=== PATIENT | female | born 1965 | race Caucasian/White ===

== ENCOUNTER 2017-04-21 15:54 | Emergency (ER) | payer OTHER ==
[2017-04-21 16:03] VITALS: BP 113/73; TEMP 98.3; BMI 27.4
[2017-04-21] MEDS ORDERED: KETOROLAC TROMETHAMINE 30 MG/1 ML VIAL IM ONE (16:29)
--- NOTE | 2017-04-21 16:31 | PDOC ---
History of Present Illness - General Chief Complaint: Pain, Acute Stated Complaint: PAIN Time Seen by Provider: 04/21/17 16:19 History Source: Patient Exam Limitations: No Limitations - History of Present Illness Initial Comments: 04/21/17 16:31 CHIEF COMPLAINT: Shoulder pain HISTORY OF PRESENT ILLNESS: This is an 51 year old female with a history of DJD (s/p right hip replacement) who presents for evaluation of two weeks of right shoulder pain. She denies injury to the area. Pain is unrelieved by Motrin and worsened with elevation/abduction of the right arm. She denies loss in sensation or any other symptoms. V/s on arrival are notable for P 105. REVIEW OF SYSTEMS: GENERAL/CONSTITUTIONAL: No fever or chills. No weakness. No weight change. CARDIOVASCULAR: No chest pain or palpitations. RESPIRATORY: No cough, wheezing, or shortness of breath. MUSCULOSKELETAL: See HPI. SKIN: No rash or easy bruising. NEUROLOGIC: No headache, vertigo, loss of consciousness, or loss of sensation. HEMATOLOGIC/LYMPHATIC: No anemia, easy bleeding, or history of blood clots. ALLERGIC/IMMUNOLOGIC: No hives or skin allergy. No latex allergy. PHYSICAL EXAM: GENERAL: The patient is awake, alert, and fully oriented, in no acute distress. ENT: Pupils equal, round and reactive to light, extraocular movements intact, sclera anicteric, conjunctiva clear. Neck supple. LUNGS: Clear to auscultation bilaterally. Normal excursion. No respiratory distress or use of accessory muscles. CV: RRR, S1/S2, no MRG. Cap refill < 2 sec. ABDOMEN: Soft, non-distended, non-tender. EXTREMITIES: Pain with passive elevation and abduction of right arm. Able to touch contralateral shoulder anteriorly but not posteriorly. Radial, ulnar, brachial pulses 2+. Sensation intact. NEUROLOGICAL: Normal speech, normal gait. CN II-XII grossly intact. PSYCH: Normal mood, normal affect. SKIN: Warm, dry, normal turgor, no rashes or lesions noted. Past History - Past Medical History Allergies/Adverse Reactions: Allergies Allergy/AdvReac Type Severity Reaction Status Date / Time No Known Allergies Allergy Unverified 04/21/17 16:01 Home Medications: Ambulatory Orders Buspirone HCl [Buspar -] 10 mg PO DAILY 04/21/17 Fluoxetine HCl [Prozac -] 10 mg PO DAILY 04/21/17 Psychiatric Problems: Yes (panic attacks, anxiety) - Surgical History Orthopedic Surgery: Yes (R hip replacement) - Immunization History Immunization Up to Date: Yes - Psycho/Social/Smoking Cessation Hx Anxiety: No Suicidal Ideation: No Smoking Status: No Smoking History: Never smoked Number of Cigarettes Smoked Daily: 0 Hx Alcohol Use: No Drug/Substance Use Hx: No Substance Use Type: None *Physical Exam - Vital Signs Last Vital Signs Temp Pulse Resp BP Pulse Ox 98.3 F 105 H 20 113/73 97 04/21/17 16:01 04/21/17 16:01 04/21/17 16:01 04/21/17 16:01 04/21/17 16:01 ED Treatment Course - RADIOLOGY Radiology Studies Ordered: Category Date Time Status SHOULDER-RIGHT [RAD] Stat Radiology 04/21/17 16:29 Ordered Medical Decision Making - Medical Decision Making 04/21/17 17:04 A/P: 51 year old female with non-traumatic right shoulder pain. 1. Toradol 30mg IM 2. Right shoulder x-ray 3. Orthopedic referral 04/21/17 18:15 Xray wet read: no acute process. Sling place. Orthopedic referral provided. Return precautions reviewed. *DC/Admit/Observation/Transfer Diagnosis at time of Disposition: Shoulder pain, right Qualifiers: Chronicity: acute Qualified Code(s): M25.511 - Pain in right shoulder - Discharge Dispostion Disposition: HOME Condition at time of disposition: Stable Admit: No - Referrals Referrals: Jose Rosales MD [Staff Physician] - Call tomorrow - Patient Instructions Printed Discharge Instructions: DI for Shoulder Pain Additional Instructions: -Rest and use the sling provided -Take Naproxen as prescribed for pain and inflammation -PRELIMINARY read of your xray is negative; you will receive a call if anything else is reported by the radiologist -Follow up with orthopedics (referral enclosed) -Return here for numbness or weakness of your arm or for any other concerning symptoms
[2017-04-21] MEDS ORDERED: KETOROLAC TROMETHAMINE 30 MG/1 ML VIAL ONE (16:33)
[2017-04-21 18:24] VITALS: PULSE 70
== END 2017-04-21 18:24 | disposition home or self-care (01) ==
LOC: JERFT 15:54
PROC: 3E0233Z Introduction of Anti-inflammatory into Muscle, Percutaneous Approach (ICD-10-PCS; principal; 2017-04-21)
DX: M25.511 Pain in right shoulder (principal); Z96.641 Presence of right artificial hip joint
CPT/HCPCS: 73030-TC-RT; 96372; 99281-25

== ENCOUNTER 2017-08-08 16:35 | Inpatient (IN) | payer OTHER ==
--- NOTE | 2017-08-08 16:54 | PDOC ---
Rapid Medical Evaluation Time Seen by Provider: 08/08/17 16:50 Medical Evaluation: Allergies Allergy/AdvReac Type Severity Reaction Status Date / Time No Known Allergies Allergy Unverified 04/21/17 16:01 08/08/17 16:50 I have performed a brief in-person evaluation of this patient. The patient presents with a chief complaint of: mid abdominal pain Pertinent physical exam findings: ABD: SNTND. Normoactive bowel sounds. I have ordered the following: CBC, CMP, lipase, ua, urine cx The patient will proceed to the ED for further evaluation. Discharge Disposition - Diagnosis Abdominal pain - Referrals - Patient Instructions - Post Discharge Activity
[2017-08-08] MEDS ORDERED: MAG HYDROX/AL HYDROX/SIMETH 30 ML UNIT-DOSE CUP PO ONE (19:19)
[2017-08-08] MEDS ORDERED: MAG HYDROX/AL HYDROX/SIMETH 30 ML UNIT-DOSE CUP ONE (19:24)
[2017-08-08] MEDS: SODIUM CHLORIDE 1,000 ML IV SCH (19:37)
[2017-08-08 19:47] LABS: BASO % 0.2 % (0-2.0); EOS % 0.4 % (0-4.5); HEMATOCRIT 39.9 % (32.4-45.2); HEMOGLOBIN 13.3 GM/dL (10.7-15.3); LYMPH % 14.4 % (8-40); MCH 32.2 pg (25.7-33.7); MCHC 33.4 g/dl (32.0-36.0); MEAN CELL VOLUME 96.6 fl (80-96); MEAN PLT VOLUME 8.6 fl (7.5-11.1); PLATELET COUNT 297 K/MM3 (134-434); RBC 4.14 M/mm3 (3.60-5.2); RDW 13.5 % (11.6-15.6); WHITE BLOOD COUNT 10.2 K/mm3 (4.0-10.0)
[2017-08-08 20:09] LABS: HCG,QUALITATIVE URINE NEGATIVE
[2017-08-08 20:12] LABS: URINE APPEARANCE CLOUDY; URINE BILIRUBIN NEGATIVE (NEGATIVE); URINE BLOOD 2+ (NEGATIVE); URINE COLOR YELLOW; URINE GLUCOSE (UA) NEGATIVE (NEGATIVE); URINE KETONE NEGATIVE (NEGATIVE); URINE LEUK ESTERASE NEGATIVE (NEGATIVE); URINE NITRITE NEGATIVE (NEGATIVE); URINE PROTEIN NEGATIVE (NEGATIVE)
[2017-08-08 20:17] LABS: ALBUMIN 3.4 g/dl (3.4-5.0); ALK PHOS 163 U/L (45-117); ANION GAP 8 (8-16); BILIRUBIN,TOTAL 0.6 mg/dL (0.2-1.0); BLOOD UREA NITROGEN 15 mg/dL (7-18); CALCIUM 9.2 mg/dL (8.5-10.1); CHLORIDE 106 mmol/L (98-107); CO2 26 mmol/L (21-32); CREATININE 0.8 mg/dL (0.55-1.02); GLUCOSE,RANDOM 95 mg/dL (74-106); LIPASE 126 U/L (73-393); POTASSIUM 4.2 mmol/L (3.5-5.1); SGOT/AST 222 U/L (15-37); SGPT/ALT 171 U/L (12-78); SODIUM 140 mmol/L (136-145); TOT PROT 7.7 g/dl (6.4-8.2)
--- NOTE | 2017-08-08 20:26 | PDOC ---
History of Present Illness - General History Source: Patient Exam Limitations: No Limitations - History of Present Illness Initial Comments: 08/08/17 20:40 The patient is a 51-year-old female, with a significant past medical history of anxiety and DJD (s/p right hip replacement), who presents to the ED with intermittent epigastric pain and nausea that began today at 2 PM. Pt was cleaning at home when the pain came on. She reports having crackers and chocolate for breakfast and has not been able to eat since due to the pain. Pt usually eats once a day and does not have much of an appetite. On exam, pt is not experiencing any pain. She denies any fever, chills, vomiting, or diarrhea. Denies any shortness of breath or chest pain. Family Hx: Gallstones (Mother) <Susanna Romo - Last Filed: 08/08/17 22:28> <Henrietta Contreras - Last Filed: 08/09/17 19:42> - General Chief Complaint: Pain, Acute Stated Complaint: STOMACH PAIN Time Seen by Provider: 08/08/17 16:50 Past History <Susanna Romo - Last Filed: 08/08/17 22:28> - Past Medical History Psychiatric Problems: Yes (panic attacks, anxiety) - Surgical History Orthopedic Surgery: Yes (R hip replacement) - Immunization History Immunization Up to Date: Yes - Suicide/Smoking/Psychosocial Hx Smoking Status: No Smoking History: Never smoked Number of Cigarettes Smoked Daily: 0 Information on smoking cessation initiated: No Hx Alcohol Use: No Drug/Substance Use Hx: No Substance Use Type: None <Henrietta Contreras - Last Filed: 08/09/17 19:42> - Past Medical History Allergies/Adverse Reactions: Allergies Allergy/AdvReac Type Severity Reaction Status Date / Time No Known Allergies Allergy Verified 08/08/17 16:56 Home Medications: Ambulatory Orders Buspirone HCl [Buspar -] 10 mg PO DAILY 04/21/17 Fluoxetine HCl [Prozac -] 10 mg PO DAILY 04/21/17 Review of Systems - Review of Systems Able to Perform ROS?: Yes Comments:: 08/08/17 20:41 CONSTITUTIONAL: Present: loss of appetite Absent: fever, chills, diaphoresis, generalized weakness, malaise HEENT: Absent: rhinorrhea, nasal congestion, throat pain, throat swelling, difficulty swallowing, mouth swelling, ear pain, eye pain, visual Changes CARDIOVASCULAR: Absent: chest pain, syncope, palpitations, irregular heart rate, lightheadedness , peripheral edema RESPIRATORY: Absent: cough, shortness of breath, dyspnea with exertion, orthopnea, wheezing, stridor, hemoptysis GASTROINTESTINAL: Present: abdominal pain, nausea Absent: abdominal distension, vomiting, diarrhea, constipation, melena, hematochezia GENITOURINARY: Absent: dysuria, frequency, urgency, hesitancy, hematuria, flank pain, genital pain MUSCULOSKELETAL: Absent: myalgia, arthralgia, joint swelling SKIN: Absent: rash, itching, pallor HEMATOLOGIC/IMMUNOLOGIC: Absent: easy bleeding, easy bruising, lymphadenopathy, frequent infections ENDOCRINE: Absent: unexplained weight gain, unexplained weight loss, heat intolerance, cold intolerance NEUROLOGIC: Absent: headache, focal weakness or paresthesias, dizziness, unsteady gait, seizure, mental status changes, bladder or bowel incontinence PSYCHIATRIC: Absent: anxiety, depression, suicidal or homicidal ideation, hallucinations. <Susanna Romo - Last Filed: 08/08/17 22:28> *Physical Exam - Vital Signs Last Vital Signs Temp Pulse Resp BP Pulse Ox 98.5 F 77 18 140/76 100 08/08/17 17:00 08/08/17 17:00 08/08/17 17:00 08/08/17 17:00 08/08/17 17:00 - Physical Exam Comments: 08/08/17 20:42 GENERAL: Well developed, well nourished. Awake and alert. No acute distress. HEENT: Normocephalic, atraumatic. PERRLA, EOMI. No conjunctival pallor. Sclera are non- icteric. Moist mucous membranes. Oropharynx is clear. NECK: Supple. Full ROM. No JVD. Carotid pulses 2+ and symmetric, without bruits. No thyromegaly. No lymphadenopathy. CARDIOVASCULAR: Regular rate and rhythm. No murmurs, rubs, or gallops. Distal pulses are 2+ and symmetric. PULMONARY: No evidence of respiratory distress. Lungs clear to auscultation bilaterally. No wheezing, rales or rhonchi. ABDOMINAL: Soft. Non-tender. Non-distended. No rebound or guarding. No organomegaly. Normoactive bowel sounds. MUSCULOSKELETAL Normal range of motion at all joints. No bony deformities or tenderness. No CVA tenderness. EXTREMITIES: No cyanosis. No clubbing. No edema. No calf tenderness. SKIN: Warm and dry. Normal capillary refill. No rashes. No jaundice. NEUROLOGICAL: Alert, awake, appropriate. <Susanna Romo - Last Filed: 08/08/17 22:28> - Vital Signs Last Vital Signs Temp Pulse Resp BP Pulse Ox 98.5 F 77 18 140/76 100 08/08/17 17:00 08/08/17 17:00 08/08/17 17:00 08/08/17 17:00 08/08/17 17:00 <Henrietta Contreras - Last Filed: 08/09/17 19:42> ED Treatment Course - LABORATORY CBC & Chemistry Diagram: 08/08/17 18:30 08/08/17 18:30 - ADDITIONAL ORDERS Additional order review: Laboratory Results 08/08/17 08/08/17 19:50 18:30 Sodium 140 Potassium 4.2 Chloride 106 Carbon Dioxide 26 Anion Gap 8 BUN 15 Creatinine 0.8 Creat Clearance w eGFR > 60 Random Glucose 95 Calcium 9.2 Total Bilirubin 0.6 AST 222 H ALT 171 H Alkaline Phosphatase 163 H Total Protein 7.7 Albumin 3.4 Lipase 126 Urine HCG, Qual Negative 08/08/17 18:30 RBC 4.14 MCV 96.6 H MCHC 33.4 RDW 13.5 MPV 8.6 Neutrophils % 79.0 Lymphocytes % 14.4 Monocytes % 6.0 Eosinophils % 0.4 Basophils % 0.2 - Medications Given in the ED: ED Medications Discontinued Medications Generic Name Dose Route Start Last Admin Trade Name Panq PRN Reason Stop Dose Admin Al Hydroxide/Mg Hydroxide 30 ml 08/08/17 19:19 08/08/17 19:32 Mylanta Oral Suspension - PO 08/08/17 19:20 30 ml ONCE ONE Administration <Susanna Romo - Last Filed: 08/08/17 22:28> - LABORATORY CBC & Chemistry Diagram: 08/09/17 07:50 08/09/17 07:50 - ADDITIONAL ORDERS Additional order review: Laboratory Results 08/08/17 08/08/17 19:50 18:30 Sodium 140 Potassium 4.2 Chloride 106 Carbon Dioxide 26 Anion Gap 8 BUN 15 Creatinine 0.8 Creat Clearance w eGFR > 60 Random Glucose 95 Calcium 9.2 Total Bilirubin 0.6 AST 222 H ALT 171 H Alkaline Phosphatase 163 H Total Protein 7.7 Albumin 3.4 Lipase 126 Urine HCG, Qual Negative 08/08/17 18:30 RBC 4.14 MCV 96.6 H MCHC 33.4 RDW 13.5 MPV 8.6 Neutrophils % 79.0 Lymphocytes % 14.4 Monocytes % 6.0 Eosinophils % 0.4 Basophils % 0.2 - RADIOLOGY Radiology Studies Ordered: Category Date Time Status ABDOMEN FLAT & UPRIGHT [RAD] Stat Radiology 08/08/17 19:18 Ordered - Medications Given in the ED: ED Medications Discontinued Medications Generic Name Dose Route Start Last Admin Trade Name Freq PRN Reason Stop Dose Admin Al Hydroxide/Mg Hydroxide 30 ml 08/08/17 19:19 08/08/17 19:32 Mylanta Oral Suspension - PO 08/08/17 19:20 30 ml ONCE ONE Administration <Henrietta Contreras - Last Filed: 08/09/17 19:42> Medical Decision Making - Medical Decision Making 08/09/17 19:41 Pt will be admitted for cholecystitis. <Henrietta Contreras - Last Filed: 08/09/17 19:42> *DC/Admit/Observation/Transfer - Attestations Scribe Attestion: 08/08/17 20:43 Documentation prepared by Susanna Romo, acting as emergency medicine medical director for Henrietta Contreras MD. <Susanna Romo - Last Filed: 08/08/17 22:28> - Discharge Dispostion Admit: Yes <Henrietta Contreras - Last Filed: 08/09/17 19:42> Diagnosis at time of Disposition: Abdominal pain, Gastritis, Gas pain - Discharge Dispostion Condition at time of disposition: Guarded
[2017-08-08 21:15] LABS: EPI CELLS MODERATE /HPF (FEW); URINE BACTERIA MODERATE /hpf (NONE SEEN); URINE MUCUS RARE
[2017-08-09] MEDS ORDERED: IBUPROFEN 800 MG/8 ML IJ IVPB PRN (01:40)
--- NOTE | 2017-08-09 01:50 | PN ---
Teaching Attending Note Name of Resident: Mario Soto ATTENDING PHYSICIAN STATEMENT I saw and evaluated the patient. I reviewed the resident's note and discussed the case with the resident. I agree with the resident's findings and plan as documented. SUBJECTIVE: OBJECTIVE: AAOX3 s1 and S2 RRR no abdominal pain noted. negative lugo's sign on exam ASSESSMENT AND PLAN: 51 y/o female with hx of anxiety presented to the ER with RUQ pain, associated with nausea and vomiting patient is being admitted for choledolithiasis diet as tolerated c/w IVF surgical evaluation pain management
--- NOTE | 2017-08-09 01:50 | HP ---
CHIEF COMPLAINT: abdominal pain PCP: HISTORY OF PRESENT ILLNESS: 51F w/ PMH of anxiety and panic attacks who presents with diffuse abdominal pain since this afternoon. She states that it started spontaneously, has been constant, 10/10 in severity, and radiates to back. She has not taken any medications for it. It was accompanied by mild nausea, decreased appetite, and chills. Pt denies fevers, chest pain, SOB, emesis, diarrhea, constipation, and dysuria. She denies ever having any similar pain like this before, and she denies eating any fatty food before the pain began. ER course was notable for: (1) US findings (2) (3) Recent Travel: denies PAST MEDICAL HISTORY: panic attacks anxiety PAST SURGICAL HISTORY: denies Social History: Smoking: denies Alcohol: denies Drugs: denies Family History: cholecystitis in mother Allergies No Known Allergies Allergy (Verified 08/08/17 16:56) HOME MEDICATIONS: Home Medications Medication Instructions Recorded Buspirone HCl [Buspar -] 10 mg PO DAILY 04/21/17 Fluoxetine HCl [Prozac -] 10 mg PO DAILY 04/21/17 REVIEW OF SYSTEMS CONSTITUTIONAL: Absent: fever, diaphoresis, generalized weakness, malaise, weight change present: chills, loss of appetite HEENT: Absent: rhinorrhea, nasal congestion, throat pain, throat swelling, difficulty swallowing, mouth swelling, ear pain, eye pain, visual changes CARDIOVASCULAR: Absent: chest pain, syncope, palpitations, irregular heart rate, lightheadedness , peripheral edema RESPIRATORY: Absent: cough, shortness of breath, dyspnea with exertion, orthopnea, wheezing, stridor, hemoptysis GASTROINTESTINAL: Absent: abdominal distension, vomiting, diarrhea, constipation, melena, hematochezia present: abdominal pain, nausea GENITOURINARY: Absent: dysuria, frequency, urgency, hesitancy, hematuria, flank pain, genital pain MUSCULOSKELETAL: Absent: myalgia, arthralgia, joint swelling, back pain, neck pain SKIN: Absent: rash, itching, pallor HEMATOLOGIC/IMMUNOLOGIC: Absent: easy bleeding, easy bruising, lymphadenopathy, frequent infections ENDOCRINE: Absent: unexplained weight gain, unexplained weight loss, heat intolerance, cold intolerance NEUROLOGIC: Absent: headache, focal weakness or paresthesias, dizziness, unsteady gait, seizure, mental status changes, bladder or bowel incontinence PSYCHIATRIC: Absent: depression, suicidal or homicidal ideation, hallucinations. present: anxiety PHYSICAL EXAMINATION Vital Signs - 24 hr 08/08/17 08/08/17 17:00 22:20 Temperature 98.5 F Pulse Rate 77 Pulse Rate [ 60 Apical] Respiratory 18 14 Rate Blood Pressure 140/76 Blood Pressure 131/82 [Right Arm] O2 Sat by Pulse 100 99 Oximetry (%) GENERAL: Awake, alert, and fully oriented, in no acute distress. HEAD: Normal with no signs of trauma. EYES: Pupils equal, round and reactive to light, extraocular movements intact, sclera anicteric, conjunctiva clear. No lid lag. EARS, NOSE, THROAT: Ears normal, nares patent, oropharynx clear without exudates. Moist mucous membranes. NECK: Normal range of motion, supple without lymphadenopathy, JVD, or masses. LUNGS: Breath sounds equal, clear to auscultation bilaterally. No wheezes, and no crackles. No accessory muscle use. HEART: Regular rate and rhythm, normal S1 and S2 without murmur, rub or gallop. ABDOMEN: Soft, nontender, not distended, normoactive bowel sounds, no guarding, no rebound, no masses. No hepatomegaly or splenomegaly. MUSCULOSKELETAL: Normal range of motion at all joints. No bony deformities or tenderness. No CVA tenderness. UPPER EXTREMITIES: 2+ pulses, warm, well-perfused. No cyanosis. No clubbing. No peripheral edema. LOWER EXTREMITIES: 2+ pulses, warm, well-perfused. No calf tenderness. No peripheral edema. NEUROLOGICAL: Cranial nerves II-XII intact. Normal speech. Normal gait. PSYCHIATRIC: Cooperative. Good eye contact. Appropriate mood and affect. SKIN: Warm, dry, normal turgor, no rashes or lesions noted, normal capillary refill. Laboratory Results - last 24 hr 08/08/17 08/08/17 08/08/17 18:30 18:30 19:50 WBC 10.2 H RBC 4.14 Hgb 13.3 Hct 39.9 MCV 96.6 H MCH 32.2 MCHC 33.4 RDW 13.5 Plt Count 297 MPV 8.6 Neutrophils % 79.0 Lymphocytes % 14.4 Monocytes % 6.0 Eosinophils % 0.4 Basophils % 0.2 Sodium 140 Potassium 4.2 Chloride 106 Carbon Dioxide 26 Anion Gap 8 BUN 15 Creatinine 0.8 Creat Clearance w eGFR > 60 Random Glucose 95 Calcium 9.2 Total Bilirubin 0.6 AST 222 H ALT 171 H Alkaline Phosphatase 163 H Total Protein 7.7 Albumin 3.4 Lipase 126 Urine Color Yellow Urine Appearance Cloudy Urine pH 6.0 Ur Specific [place] 1.021 Urine Protein Negative Urine Glucose (UA) Negative Urine Ketones Negative Urine Blood 2+ H Urine Nitrite Negative Urine Bilirubin Negative Urine Urobilinogen 2.0 H Ur Leukocyte Esterase Negative Urine WBC (Auto) 7 Urine RBC (Auto) 5 Ur Epithelial Cells Moderate Urine Bacteria Moderate Urine Mucus Rare Urine HCG, Qual Negative US abdomen: cholelithiasis with mild gallbladder wall thickening and pericholecystic fluid ASSESSMENT/PLAN: 51F w/ PMH of anxiety and panic attacks who presents with acute diffuse abdominal pain, found to have abnormal LFTs and US findings consistent with cholecystitis. #cholecystitis -transaminitis and elevated ALP -US shows findings consistent with cholecystitis -levaquin and flagyl -NS @ 125 -NPO for now -surgery consult, Dr. Giordano, f/u recs -pain control with IV motrin #anxiety -continue home buspar and prozac #FEN/ppx -NS @ 125 -electrolytes wnl -NPO for now -no GI ppx -SCDs -Mario Soto MD PGY1 Visit type - Emergency Visit Emergency Visit: Yes ED Registration Date: 08/09/17 Care time: The patient presented to the Emergency Department on the above date and was hospitalized for further evaluation of their emergent condition. - New Patient This patient is new to me today: Yes Date on this admission: 08/09/17 - Critical Care Critical Care patient: No
[2017-08-09] MEDS: SODIUM CHLORIDE 1,000 ML IV SCH ×3 (02:22→18:16)
[2017-08-09] MEDS: LEVOFLOXACIN 750 MG IVPB 750 MG/150 ML BAG IVPB SCH ×2 (02:41→21:32)
[2017-08-09] MEDS: METRONIDAZOLE 500 MG PREMIXED 500 MG/100 ML MG IVPB SCH ×4 (03:29→21:31)
[2017-08-09 05:42] VITALS: BMI 29.0
[2017-08-09 08:30] LABS: BASO % 0.2 % (0-2.0); EOS % 0.5 % (0-4.5); HEMATOCRIT 37.7 % (32.4-45.2); HEMOGLOBIN 12.4 GM/dL (10.7-15.3); LYMPH % 10.6 % (8-40); MCH 31.4 pg (25.7-33.7); MCHC 32.7 g/dl (32.0-36.0); MEAN PLT VOLUME 8.3 fl (7.5-11.1); MONO % 6.4 % (3.8-10.2); NEUT % 82.3 % (42.8-82.8); PLATELET COUNT 259 K/MM3 (134-434); RBC 3.93 M/mm3 (3.60-5.2); RDW 13.5 % (11.6-15.6); WHITE BLOOD COUNT 8.1 K/mm3 (4.0-10.0)
[2017-08-09 08:53] LABS: ALBUMIN 2.9 g/dl (3.4-5.0); ANION GAP 7 (8-16); BLOOD UREA NITROGEN 8 mg/dL (7-18); CALCIUM 8.6 mg/dL (8.5-10.1); CHLORIDE 109 mmol/L (98-107); CO2 24 mmol/L (21-32); GLUCOSE,RANDOM 97 mg/dL (74-106); POTASSIUM 4.4 mmol/L (3.5-5.1); SGPT/ALT 327 U/L (12-78); SODIUM 140 mmol/L (136-145)
[2017-08-09 08:55] LABS: ALK PHOS 167 U/L (45-117); CREATININE 0.7 mg/dL (0.55-1.02); SGOT/AST 265 U/L (15-37); TOT PROT 6.7 g/dl (6.4-8.2)
[2017-08-09] MEDS: FLUoxetine HCL 10 MG CAPSULE (FP) PO SCH ×2 (09:15→09:17)
[2017-08-09] MEDS: busPIRone HCL 10 MG TABLET (FP) PO SCH ×2 (09:15→09:18)
[2017-08-09 09:20] LABS: INR 1.16 (0.82-1.09); PROTHROMBIN TIME (PATIENT) 13.1 SEC (9.98-11.88)
[2017-08-09 09:21] LABS: ACTIVATED PTT 31.3 SECONDS (26.9-34.4)
--- NOTE | 2017-08-09 12:07 | CONSULT ---
- Consultation REQUESTING PROVIDER: Mariella MAHONEY CONSULT REQUEST: We have been asked to surgically evaluate this patient for abdominal pain PCP:Fam Nur HISTORY OF PRESENT ILLNESS:CTSP who is a 51 y/o female who presented w/ nausea and vomiting and abdominal pain; w/u reveals cholelithiasis possible choledocholithiasis; she feels better since admission; pain started after eating ; she denies dark urine/light stools; NOC PMHx: anxiety/depression PSHx: hip surgery Home Medications Medication Instructions Recorded Buspirone HCl [Buspar -] 10 mg PO DAILY 04/21/17 Fluoxetine HCl [Prozac -] 10 mg PO DAILY 04/21/17 Allergies Allergy/AdvReac Type Severity Reaction Status Date / Time No Known Allergies Allergy Verified 08/08/17 16:56 PHYSICAL EXAM: GENERAL: Awake, alert, and fully oriented, in no acute distress. HEAD: Normal with no signs of trauma. EYES: sclera anicteric, conjunctiva clear. NECK: Normal ROM, supple without lymphadenopathy, JVD, or masses. ABDOMEN: Soft, nontender, not distended, normoactive bowel sounds, no guarding, no rebound, no masses. No organomegaly. MUSCULOSKELETAL: Normal ROM at all joints. No bony deformities or tenderness. No CVA tenderness. UPPER EXTREMITIES: 2+ pulses, warm, well-perfused. No cyanosis. Cap refill <2 seconds. No peripheral edema. LOWER EXTREMITIES: 2+ pulses, warm, well-perfused. No calf tenderness. No peripheral edema. NEUROLOGICAL: Normal speech, gait not observed. PSYCH: Cooperative. Good eye contact. Appropriate mood and affect. SKIN: Warm, dry, normal turgor, no rashes or lesions noted. Vital Signs Temperature 98.8 F 08/09/17 10:00 Pulse Rate 77 08/09/17 10:00 Respiratory Rate 18 08/09/17 10:00 Blood Pressure 106/76 08/09/17 10:00 O2 Sat by Pulse Oximetry (%) 99 08/09/17 00:33 Lab Results WBC 8.1 K/mm3 (4.0-10.0) 08/09/17 07:50 RBC 3.93 M/mm3 (3.60-5.2) 08/09/17 07:50 Hgb 12.4 GM/dL (10.7-15.3) 08/09/17 07:50 Hct 37.7 % (32.4-45.2) 08/09/17 07:50 MCV 96.0 fl (80-96) 08/09/17 07:50 MCHC 32.7 g/dl (32.0-36.0) 08/09/17 07:50 RDW 13.5 % (11.6-15.6) 08/09/17 07:50 Plt Count 259 K/MM3 (134-434) 08/09/17 07:50 Sodium 140 mmol/L (136-145) 08/09/17 07:50 Potassium 4.4 mmol/L (3.5-5.1) 08/09/17 07:50 Chloride 109 mmol/L (98-107) H 08/09/17 07:50 Carbon Dioxide 24 mmol/L (21-32) 08/09/17 07:50 Anion Gap 7 (8-16) L 08/09/17 07:50 BUN 8 mg/dL (7-18) D 08/09/17 07:50 Creatinine 0.7 mg/dL (0.55-1.02) 08/09/17 07:50 Random Glucose 97 mg/dL (74-106) 08/09/17 07:50 Calcium 8.6 mg/dL (8.5-10.1) 08/09/17 07:50 Blood Type O POSITIVE 08/09/17 07:50 Antibody Screen Negative 08/09/17 07:50 INR 1.16 (0.82-1.09) H 08/09/17 07:50 Imaging w/u to date reviewed IMP: cholelithiasis; r/o choledocholithiasis PLAN: Suggest NPO/IVF?trend LFT's and bili; MRCP; will f/u; will eventually need lap juliet. Samir Giordano MD FACS Visit type - Case Type Case Type: ED Admission - Emergency Emergency Visit: Yes ED Registration Date: 08/09/17 Care time: The patient presented to the Emergency Department on the above date and was hospitalized for further evaluation of their emergent condition. - New patient This patient is new to me today: Yes Date on this admission: 08/09/17 - Critical Care Critical Care patient: No
--- NOTE | 2017-08-09 14:44 | PN ---
Progress Note (short form) - Note Progress Note: GI CONSULTATION: " FOR DR ELIZABETH GREGORIO" SEE COMPLETE CONSULT DICTATION IN BRIEF: 51F WITHOUT PRIOR GI HX ACUTE ONSET OF DIFFUSE UMBILICAL AND EPIGASTRIC PAIN, NOW RESOLVED NOTED LFT ELEVATION, SONO C/W A.C., BUT NO DUUCTAL DILATION UNCLEAR IF LFT ELEVATION DUE TO CBD STONE/ INFLAMED GB ON LIVER BED/ OR OCCULT LIVER DIUSEASE RECC: NPO/CLEAR PO GILBERT. IVF IV ABX/ PAIN MEDS IF NEEDED MRCP TO R/O CBD STONES NEXT DX TEST F/U LFT'S CHOLECYSTECTOMY THANKS, MD JOSÉ MANUEL
--- NOTE | 2017-08-09 16:17 | PN ---
Physical Exam: SUBJECTIVE: Patient seen and examined Patient feels better with no acute distress. has mild pain 2/10. OBJECTIVE: Vital Signs Temperature 98.2 F 08/09/17 18:51 Pulse Rate 89 08/09/17 18:51 Respiratory Rate 18 08/09/17 18:51 Blood Pressure 143/90 08/09/17 18:51 O2 Sat by Pulse Oximetry (%) 98 08/09/17 09:00 GENERAL: The patient is awake, alert, and fully oriented, in no acute distress. HEAD: Normal with no signs of trauma. EYES: PERRL, extraocular movements intact, sclera anicteric, conjunctiva clear. ENT: Ears normal, oropharynx clear without exudates, moist mucous membranes. NECK: Trachea midline, full range of motion, supple. LUNGS: Breath sounds equal, clear to auscultation bilaterally, no wheezes, no crackles, no accessory muscle use. HEART: Regular rate and rhythm, S1, S2 without murmur, rub or gallop. ABDOMEN: Soft, mild tenderness RUQ/midepigastric area. nondistended, normoactive bowel sounds, no guarding, no rebound. EXTREMITIES: 2+ pulses, warm, well-perfused, no edema. NEUROLOGICAL: Cranial nerves II through XII grossly intact. Normal speech, gait not observed. PSYCH: Normal mood, normal affect. SKIN: Warm, dry, normal turgor, no rashes or lesions noted Laboratory Results - last 24 hr 08/08/17 08/08/17 08/08/17 18:30 18:30 19:50 WBC 10.2 H RBC 4.14 Hgb 13.3 Hct 39.9 MCV 96.6 H MCH 32.2 MCHC 33.4 RDW 13.5 Plt Count 297 MPV 8.6 Neutrophils % 79.0 Lymphocytes % 14.4 Monocytes % 6.0 Eosinophils % 0.4 Basophils % 0.2 PT with INR INR PTT (Actin FS) Sodium 140 Potassium 4.2 Chloride 106 Carbon Dioxide 26 Anion Gap 8 BUN 15 Creatinine 0.8 Creat Clearance w eGFR > 60 Random Glucose 95 Calcium 9.2 Total Bilirubin 0.6 AST 222 H ALT 171 H Alkaline Phosphatase 163 H Total Protein 7.7 Albumin 3.4 Lipase 126 Urine Color Yellow Urine Appearance Cloudy Urine pH 6.0 Ur Specific [place] 1.021 Urine Protein Negative Urine Glucose (UA) Negative Urine Ketones Negative Urine Blood 2+ H Urine Nitrite Negative Urine Bilirubin Negative Urine Urobilinogen 2.0 H Ur Leukocyte Esterase Negative Urine WBC (Auto) 7 Urine RBC (Auto) 5 Ur Epithelial Cells Moderate Urine Bacteria Moderate Urine Mucus Rare Urine HCG, Qual Negative Blood Type Antibody Screen 08/09/17 08/09/17 08/09/17 07:50 07:50 07:50 WBC 8.1 RBC 3.93 Hgb 12.4 Hct 37.7 MCV 96.0 MCH 31.4 MCHC 32.7 RDW 13.5 Plt Count 259 MPV 8.3 Neutrophils % 82.3 Lymphocytes % 10.6 D Monocytes % 6.4 Eosinophils % 0.5 Basophils % 0.2 PT with INR 13.10 H INR 1.16 H PTT (Actin FS) 31.3 Sodium 140 Potassium 4.4 Chloride 109 H Carbon Dioxide 24 Anion Gap 7 L BUN 8 D Creatinine 0.7 Creat Clearance w eGFR > 60 Random Glucose 97 Calcium 8.6 Total Bilirubin 1.0 D AST 265 H ALT 327 H D Alkaline Phosphatase 167 H Total Protein 6.7 Albumin 2.9 L Lipase Urine Color Urine Appearance Urine pH Ur Specific [place] Urine Protein Urine Glucose (UA) Urine Ketones Urine Blood Urine Nitrite Urine Bilirubin Urine Urobilinogen Ur Leukocyte Esterase Urine WBC (Auto) Urine RBC (Auto) Ur Epithelial Cells Urine Bacteria Urine Mucus Urine HCG, Qual Blood Type Antibody Screen 08/09/17 07:50 WBC RBC Hgb Hct MCV MCH MCHC RDW Plt Count MPV Neutrophils % Lymphocytes % Monocytes % Eosinophils % Basophils % PT with INR INR PTT (Actin FS) Sodium Potassium Chloride Carbon Dioxide Anion Gap BUN Creatinine Creat Clearance w eGFR Random Glucose Calcium Total Bilirubin AST ALT Alkaline Phosphatase Total Protein Albumin Lipase Urine Color Urine Appearance Urine pH Ur Specific [place] Urine Protein Urine Glucose (UA) Urine Ketones Urine Blood Urine Nitrite Urine Bilirubin Urine Urobilinogen Ur Leukocyte Esterase Urine WBC (Auto) Urine RBC (Auto) Ur Epithelial Cells Urine Bacteria Urine Mucus Urine HCG, Qual Blood Type O POSITIVE Antibody Screen Negative Active Medications Generic Name Dose Route Start Last Admin Trade Name Freq PRN Reason Stop Dose Admin Buspirone HCl 10 mg 08/09/17 10:00 08/09/17 09:18 Buspar - PO Not Given DAILY JIGNESH Fluoxetine HCl 10 mg 08/09/17 10:00 08/09/17 09:17 Prozac - PO Not Given DAILY JIGNESH Sodium Chloride 1,000 mls @ 125 mls/hr 08/08/17 17:00 08/09/17 14:53 Normal Saline - IV 125 mls/hr ASDIR JIGNESH Administration Metronidazole 500 mg in 100 mls @ 100 mls/hr 08/09/17 03:00 08/09/17 09:14 Flagyl 500mg Premixed Ivpb - IVPB 100 mls/hr Q6H-IV JIGNESH Administration Levofloxacin 750 mg in 150 mls @ 100 mls/hr 08/09/17 01:45 08/09/17 02:41 Levaquin 750 Mg Premixed Ivpb - IVPB 100 mls/hr HS JIGNESH Administration Laboratory Tests 08/08/17 08/09/17 18:30 07:50 AST 222 H 265 H ALT 171 H 327 H D Alkaline Phosphatase 163 H 167 H US abdomen: cholelithiasis with mild gallbladder wall thickening and pericholecystic fluid ASSESSMENT/PLAN: 51F w/ PMH of anxiety and panic attacks who presents with acute diffuse abdominal pain, found to have abnormal LFTs and US findings consistent with cholecystitis. #Acute cholecystitis with elevated transaminitis continues to trend up, NPO , on IVF , IV antibiotic; levaquin/flagyl. GI and Surgery on the case patient is seen by GI, MRCP is ordered. #anxiety continue home buspar and prozac DVTPx: scds MRCP pending. Visit type - Emergency Visit Emergency Visit: Yes ED Registration Date: 08/09/17 Care time: The patient presented to the Emergency Department on the above date and was hospitalized for further evaluation of their emergent condition. - New Patient This patient is new to me today: No - Critical Care Critical Care patient: No
[2017-08-10] MEDS: METRONIDAZOLE 500 MG PREMIXED 500 MG/100 ML MG IVPB SCH ×4 (02:43→21:12)
[2017-08-10] MEDS: SODIUM CHLORIDE 1,000 ML IV SCH ×3 (02:43→17:00)
[2017-08-10] MEDS: busPIRone HCL 10 MG TABLET (FP) PO SCH (09:54)
[2017-08-10] MEDS: FLUoxetine HCL 10 MG CAPSULE (FP) PO SCH (09:54)
[2017-08-10 13:08] LABS: BASO % 0.3 % (0-2.0); EOS % 1.5 % (0-4.5); HEMOGLOBIN 12.2 GM/dL (10.7-15.3); LYMPH % 15.2 % (8-40); MEAN PLT VOLUME 8.2 fl (7.5-11.1); MONO % 10.4 % (3.8-10.2); NEUT % 72.6 % (42.8-82.8); PLATELET COUNT 225 K/MM3 (134-434); RBC 3.82 M/mm3 (3.60-5.2); RDW 13.7 % (11.6-15.6); WHITE BLOOD COUNT 5.5 K/mm3 (4.0-10.0)
[2017-08-10 13:27] LABS: ANION GAP 11 (8-16); BILIRUBIN,TOTAL 0.4 mg/dL (0.2-1.0); BLOOD UREA NITROGEN 8 mg/dL (7-18); CALCIUM 8.7 mg/dL (8.5-10.1); CHLORIDE 109 mmol/L (98-107); CO2 22 mmol/L (21-32); CREATININE 0.7 mg/dL (0.55-1.02); GLUCOSE,RANDOM 79 mg/dL (74-106); PHOSPHOROUS 2.2 mg/dL (2.5-4.9); POTASSIUM 3.9 mmol/L (3.5-5.1); SGOT/AST 110 U/L (15-37); SGPT/ALT 213 U/L (12-78); SODIUM 142 mmol/L (136-145); TOT PROT 6.8 g/dl (6.4-8.2)
[2017-08-10 13:28] LABS: ALK PHOS 174 U/L (45-117)
--- NOTE | 2017-08-10 15:43 | PN ---
GI Progress Note Subjective: GI FOR DR GREGORIO: SEE FULL CONSULTATION 08/09 NO CHANGES NO C/O AT THIS TIME NO N/V/F/C/S PAIN RESOLVED FEELS VERY HUNGRY - Objective Vital Signs: Vital Signs Temperature 98.5 F 08/10/17 14:43 Pulse Rate 70 08/10/17 14:43 Respiratory Rate 18 08/10/17 10:00 Blood Pressure 121/61 08/10/17 14:43 O2 Sat by Pulse Oximetry (%) 96 08/10/17 09:00 Constitutional: Well Nourished, No Distress, Calm Eyes: Yes: WNL Gastrointestinal Inspection: Yes: WNL Labs: CBC, BMP 08/10/17 12:54 08/10/17 12:54 INR, PTT INR 1.16 (0.82-1.09) H 08/09/17 07:50 Assessment/Plan 51F BILIARY COLIC/A.C WITH ELEVATED LFT'S NO EVIDENCE OF CHOLANGITIS UNCLEAR IF LEFT ELEVATION DUE TO INFLAMED GB ON LIVER BED OR CBD DISEASE AWAITING MRCP FOR DEFINITIVE FINDINGS LFT'S SLIGHTLY IMPROVED CURRENTLY COMFORTABLE AND STABLE ON ABX FOR MRCP MD JOSÉ MANUEL
--- NOTE | 2017-08-10 16:32 | CONS ---
DATE OF CONSULTATION: 08/09/2017 This consult is for Dr. Vitaly Dumont; we are in coverage of Dr. Vitaly Dumont today. The patient comes in with abdominal pain. Apparently, she is a 51-year-old woman from [place] without significant past medical history. She has had some anxiety and takes BuSpar. She has a history of DJD and she is status post a right hip replacement. She has seen a GI. She believes she had seen Dr. Diaz a couple of years ago for a colonoscopy at [facility] that she believes was normal. She has not had other GI issues, except that she tells me, yesterday, she came in because of abdominal pain that started around midday. She woke up late and had breakfast, she had some saltine cracker and some hot chocolate, and she noted a couple of hours later the onset of diffuse umbilical and epigastric pain without fevers, chills, or sweats. She had nausea, but not vomiting, and she lost her appetite. The pain became more severe, so she came to the hospital for evaluation. When she came to the hospital, a lot of her pain had resolved. She tells me that she has some chronic constipation. She has no known history of any liver, biliary, or pancreatic disease and she is unaware of having gallstones. Apparently, when she came to the emergency room, she was noted to have gallstones and was admitted for possible acute cholecystitis. The patient has no known drug allergies. MEDICATIONS: BuSpar and Prozac. Apparently, she tells me that she is . Does not smoke, does not drink. She is currently unemployed and, as noted, she was born in [place]. Her only surgery was the right hip replacement. PHYSICAL EXAMINATION: General: It appears currently she is very comfortable, moving about the bed easily. Vital Signs: She is afebrile. Vital signs are stable. Her pulse is 80, her blood pressure is 112/80. HEENT: Her sclerae are anicteric. Skin: Cool. Neck: Supple. Lungs: Clear. Heart: Regular. Abdomen: Thin with bowel sounds symmetric. No significant scars. There is no tenderness to palpation in any quadrant. There are no masses, rebound, or guarding. LABORATORY DATA: Today, is notable in that her coagulations are normal with an INR of 1.1. She had a white count on admission of 10.2; it is now 8.1 with a hemoglobin of 12.4 and hematocrit of 37.7 and 259,000 platelets. She has a serum sodium of 140, potassium 4.4, chloride 109, bicarbonate 24, BUN of 8, creatinine 0.7. When she came in, her AST was 222; today, it is 265. When she came in, her ALT was 171; her ALT 327 today. Her alkaline phosphatase was 163; today, it is 167. Her total bilirubin has gone from 0.6 to 1.0. She has an albumin of 3.4 on admission. RADIOGRAPHIC IMAGING: It appears that the only test that she has had looks like it was a sonogram of the right upper quadrant that notes gallstones with mild gallbladder wall thickening and pericholecystic fluid, consistent with acute cholecystitis. There is no evidence of intrahepatic or extrahepatic biliary ductal dilatation and the common bile duct appears normal on this examination. IMPRESSION: The patient is a very healthy-appearing 51-year-old woman without prior gastrointestinal history who comes in with acute onset of epigastric pain who feels much improved at the present time. On sonogram, she is noted to have a thick-walled gallbladder with cholelithiasis and possible cholecystitis. She has elevation of liver enzymes, raising the question of possible choledocholithiasis. She has no known liver history in the past, so I agree that the patient, prior to a cholecystectomy, should undergo some biliary imaging via magnetic resonance cholangiopancreatography to exclude common bile duct stones. If that is the case, then it is possible that either the liver function test elevation reveals a very thickened gallbladder wall or the possibility of occult liver disease like autoimmune hepatitis, which is less likely, that we would workup in the future as an outpatient. For now, I would recommend IV fluid, n.p.o., IV antibiotics, surgical followup, and an MRCP to exclude evidence of common bile duct stones. We will continue to be available to aid in the management of this patient. Currently, it appears the patient is on Levaquin, Flagyl, Prozac, BuSpar, and IV fluids. PRIYA GEORGES M.D. [id number]
[2017-08-10] MEDS ORDERED: POTASSIUM PHOSPHATE 15 MM in DEXTROSE 5%-WATER - 250 ML IVPB ONE (17:00)
--- NOTE | 2017-08-10 18:40 | PN ---
Progress Note (short form) - Note Progress Note: Patient continues to feel well. NO further abdominal pain. No Shortness of breath. Vital Signs Temperature 98.5 F 08/10/17 14:43 Pulse Rate 70 08/10/17 14:43 Respiratory Rate 18 08/10/17 10:00 Blood Pressure 121/61 08/10/17 14:43 O2 Sat by Pulse Oximetry (%) 96 08/10/17 09:00 GENERAL: The patient is awake, alert, and fully oriented, in no acute distress. HEAD: Normal with no signs of trauma. EYES: PERRL, extraocular movements intact, sclera anicteric, conjunctiva clear. ENT: Ears normal, oropharynx clear without exudates, moist mucous membranes. NECK: Trachea midline, full range of motion, supple. LUNGS: Breath sounds equal, clear to auscultation bilaterally, no wheezes, no crackles, no accessory muscle use. HEART: Regular rate and rhythm, S1, S2 without murmur, rub or gallop. ABDOMEN: Soft, nontender, nondistended, normoactive bowel sounds, no guarding, no rebound, no hepatosplenomegaly, no masses. EXTREMITIES: 2+ pulses, warm, well-perfused, no edema. NEUROLOGICAL: Cranial nerves II through XII grossly intact. Normal speech, gait is stable. PSYCH: Normal mood, normal affect. SKIN: Warm, dry, normal turgor, no rashes or lesions noted CBCD WBC 5.5 K/mm3 (4.0-10.0) D 08/10/17 12:54 RBC 3.82 M/mm3 (3.60-5.2) 08/10/17 12:54 Hgb 12.2 GM/dL (10.7-15.3) 08/10/17 12:54 Hct 37.0 % (32.4-45.2) 08/10/17 12:54 MCV 97.0 fl (80-96) H 08/10/17 12:54 MCHC 33.0 g/dl (32.0-36.0) 08/10/17 12:54 RDW 13.7 % (11.6-15.6) 08/10/17 12:54 Plt Count 225 K/MM3 (134-434) 08/10/17 12:54 MPV 8.2 fl (7.5-11.1) 08/10/17 12:54 CMP Sodium 142 mmol/L (136-145) 08/10/17 12:54 Potassium 3.9 mmol/L (3.5-5.1) 08/10/17 12:54 Chloride 109 mmol/L (98-107) H 08/10/17 12:54 Carbon Dioxide 22 mmol/L (21-32) 08/10/17 12:54 Anion Gap 11 (8-16) 08/10/17 12:54 BUN 8 mg/dL (7-18) 08/10/17 12:54 Creatinine 0.7 mg/dL (0.55-1.02) 08/10/17 12:54 Creat Clearance w eGFR > 60 (>60) 08/10/17 12:54 Random Glucose 79 mg/dL (74-106) 08/10/17 12:54 Calcium 8.7 mg/dL (8.5-10.1) 08/10/17 12:54 Total Bilirubin 0.4 mg/dL (0.2-1.0) D 08/10/17 12:54 AST 110 U/L (15-37) H D 08/10/17 12:54 ALT 213 U/L (12-78) H D 08/10/17 12:54 Alkaline Phosphatase 174 U/L (45-117) H 08/10/17 12:54 Total Protein 6.8 g/dl (6.4-8.2) 08/10/17 12:54 Albumin 3.0 g/dl (3.4-5.0) L 08/10/17 12:54 Current Medications Generic Name Dose Route Start Last Admin Trade Name Freq PRN Reason Stop Dose Admin Buspirone HCl 10 mg 08/09/17 10:00 08/10/17 09:54 Buspar - PO Not Given DAILY JIGNESH Fluoxetine HCl 10 mg 08/09/17 10:00 08/10/17 09:54 Prozac - PO Not Given DAILY JIGNESH Sodium Chloride 1,000 mls @ 125 mls/hr 08/08/17 17:00 08/10/17 17:00 Normal Saline - IV Not Given ASDIR JIGNESH Metronidazole 500 mg in 100 mls @ 100 mls/hr 08/09/17 03:00 08/10/17 15:33 Flagyl 500mg Premixed Ivpb - IVPB 100 mls/hr Q6H-IV JIGNESH Administration Levofloxacin 750 mg in 150 mls @ 100 mls/hr 08/09/17 01:45 08/09/17 21:32 Levaquin 750 Mg Premixed Ivpb - IVPB 100 mls/hr HS JIGNESH Administration Potassium Phosphate 15 mm/ 255 mls @ 63.75 mls/hr 08/10/17 17:00 08/10/17 16: 50 Dextrose IVPB 08/10/17 20:59 63.75 mls/hr ONCE ONE Administration 15 MM/4 HR Home Medications Medication Instructions Recorded Buspirone HCl [Buspar -] 10 mg PO DAILY 04/21/17 Fluoxetine HCl [Prozac -] 10 mg PO DAILY 04/21/17 Laboratory Tests 08/08/17 08/09/17 08/10/17 18:30 07:50 12:54 AST 222 H 265 H 110 H D ALT 171 H 327 H D 213 H D Alkaline Phosphatase 163 H 167 H 174 H US abdomen: cholelithiasis with mild gallbladder wall thickening and pericholecystic fluid ASSESSMENT/PLAN: 51F w/ PMH of anxiety and panic attacks who presents with acute diffuse abdominal pain, found to have abnormal LFTs and US findings consistent with cholecystitis. #Acute cholecystitis with elevated transaminitis on IVF , IV antibiotic, GI and Surgery on the case and appreciated. # Acute Transaminitis : LFts trending down, will continue to monitor. #anxiety continue home buspar and prozac FOR MRCP Visit type - Emergency Visit Emergency Visit: Yes ED Registration Date: 08/09/17 Care time: The patient presented to the Emergency Department on the above date and was hospitalized for further evaluation of their emergent condition. - New Patient This patient is new to me today: No - Critical Care Critical Care patient: No
[2017-08-10] MEDS: LEVOFLOXACIN 750 MG IVPB 750 MG/150 ML BAG IVPB SCH (21:12)
[2017-08-11] MEDS: METRONIDAZOLE 500 MG PREMIXED 500 MG/100 ML MG IVPB SCH ×4 (02:33→22:07)
[2017-08-11] MEDS: SODIUM CHLORIDE 1,000 ML IV SCH ×2 (05:30→13:41)
[2017-08-11 09:40] LABS: BASO % 0.4 % (0-2.0); EOS % 2.6 % (0-4.5); HEMATOCRIT 39.1 % (32.4-45.2); HEMOGLOBIN 12.7 GM/dL (10.7-15.3); LYMPH % 19.2 % (8-40); MCH 31.6 pg (25.7-33.7); MCHC 32.6 g/dl (32.0-36.0); MEAN CELL VOLUME 96.9 fl (80-96); MEAN PLT VOLUME 8.5 fl (7.5-11.1); MONO % 10.1 % (3.8-10.2); NEUT % 67.7 % (42.8-82.8); PLATELET COUNT 233 K/MM3 (134-434); RBC 4.03 M/mm3 (3.60-5.2); RDW 13.6 % (11.6-15.6); WHITE BLOOD COUNT 6.3 K/mm3 (4.0-10.0)
[2017-08-11 10:10] LABS: ALBUMIN 3.1 g/dl (3.4-5.0); ANION GAP 12 (8-16); BLOOD UREA NITROGEN 8 mg/dL (7-18); CALCIUM 9.1 mg/dL (8.5-10.1); CHLORIDE 108 mmol/L (98-107); CO2 21 mmol/L (21-32); CREATININE 0.6 mg/dL (0.55-1.02); GLUCOSE,RANDOM 78 mg/dL (74-106); POTASSIUM 4.2 mmol/L (3.5-5.1); SGOT/AST 84 U/L (15-37); SGPT/ALT 181 U/L (12-78); SODIUM 141 mmol/L (136-145)
[2017-08-11 10:12] LABS: ALK PHOS 166 U/L (45-117); BILIRUBIN,TOTAL 0.4 mg/dL (0.2-1.0)
[2017-08-11] MEDS: busPIRone HCL 10 MG TABLET (FP) PO SCH (10:38)
[2017-08-11] MEDS: FLUoxetine HCL 10 MG CAPSULE (FP) PO SCH (10:38)
--- NOTE | 2017-08-11 11:19 | PN ---
Progress Note (short form) - Note Progress Note: Attending Surgeon No c/o VSS AF abdomen-benign LFT's remain essentially the same IMP: cholelithiasis; r/o choledocholithiasis PLAN: Awaiting MRCP; continue present tx. Baldo Giordano MD FACS
--- NOTE | 2017-08-11 15:09 | PN ---
Physical Exam: SUBJECTIVE: Patient seen and examined. No acute events overnight. Pt reports that she has no abdominal pain, n/v/d/c, fevers, chills. OBJECTIVE: Vital Signs Period Temp Pulse Resp BP Sys/Harper Pulse Ox Last 24 Hr 98.2 F-98.6 F 60-73 18-18 108-132/50-80 99-99 GENERAL: The patient is awake, alert, and fully oriented, in no acute distress. HEENT: NC, AT LUNGS: Breath sounds equal, clear to auscultation bilaterally, no wheezes, no crackles, no accessory muscle use. HEART: Regular rate and rhythm, S1, S2 without murmur, rub or gallop. ABDOMEN: Soft, nontender, nondistended, normoactive bowel sounds, no guarding, no rebound, no hepatosplenomegaly, no masses. EXTREMITIES: 2+ pulses, warm, well-perfused, no edema. NEUROLOGICAL: Cranial nerves II through XII grossly intact. Normal speech, gait not observed. Laboratory Results - last 24 hr 08/11/17 08/11/17 09:15 09:15 WBC 6.3 RBC 4.03 Hgb 12.7 Hct 39.1 MCV 96.9 H MCH 31.6 MCHC 32.6 RDW 13.6 Plt Count 233 MPV 8.5 Neutrophils % 67.7 Lymphocytes % 19.2 D Monocytes % 10.1 Eosinophils % 2.6 Basophils % 0.4 Sodium 141 Potassium 4.2 Chloride 108 H Carbon Dioxide 21 Anion Gap 12 BUN 8 Creatinine 0.6 Creat Clearance w eGFR > 60 Random Glucose 78 Calcium 9.1 Total Bilirubin 0.4 AST 84 H D ALT 181 H Alkaline Phosphatase 166 H Total Protein 7.0 Albumin 3.1 L Active Medications Generic Name Dose Route Start Last Admin Trade Name Freq PRN Reason Stop Dose Admin Buspirone HCl 10 mg 08/09/17 10:00 08/11/17 10:38 Buspar - PO Not Given DAILY JIGNESH Fluoxetine HCl 10 mg 08/09/17 10:00 08/11/17 10:38 Prozac - PO Not Given DAILY JIGNESH Sodium Chloride 1,000 mls @ 125 mls/hr 08/08/17 17:00 08/11/17 13:41 Normal Saline - IV 125 mls/hr ASDIR JIGNESH Administration Metronidazole 500 mg in 100 mls @ 100 mls/hr 08/09/17 03:00 08/11/17 14:15 Flagyl 500mg Premixed Ivpb - IVPB 100 mls/hr Q6H-IV JIGNESH Administration Levofloxacin 750 mg in 150 mls @ 100 mls/hr 08/09/17 01:45 08/10/17 21:12 Levaquin 750 Mg Premixed Ivpb - IVPB 100 mls/hr HS JIGNESH Administration ASSESSMENT/PLAN: 51F w/ PMH of anxiety and panic attacks who presents with acute diffuse abdominal pain, found to have abnormal LFTs and US findings consistent with cholecystitis. #abdominal pain -likely 2/2 cholecystitis vs. choledocolithiasis. If possible, it is likely that the stone passed. -transaminitis and elevated ALP now downtrending -US shows findings consistent with cholecystitis -levaquin and flagyl -NS @ 125 -NPO for now -per surgery and GI, await results of MRCP -pain control with IV motrin -f/u MRCP #anxiety -continue home buspar and prozac #FEN/ppx -D5-NS @ 125 -electrolytes wnl -NPO for now -no GI ppx -SCDs -Mario Soto MD PGY1 Visit type - Emergency Visit Emergency Visit: Yes ED Registration Date: 08/09/17 Care time: The patient presented to the Emergency Department on the above date and was hospitalized for further evaluation of their emergent condition. - New Patient This patient is new to me today: No - Critical Care Critical Care patient: No
--- NOTE | 2017-08-11 15:17 | PN ---
Progress Note (short form) - Note Progress Note: Patient has no further pain. Vital Signs Temperature 98.5 F 08/11/17 08:43 Pulse Rate 60 08/11/17 08:43 Respiratory Rate 18 08/11/17 09:00 Blood Pressure 125/73 08/11/17 08:43 O2 Sat by Pulse Oximetry (%) 99 08/11/17 09:00 GENERAL: The patient is awake, alert, and fully oriented, in no acute distress. HEAD: Normal with no signs of trauma. EYES: PERRL, extraocular movements intact, sclera anicteric, conjunctiva clear. . ENT: Ears normal, oropharynx clear without exudates, moist mucous membranes. NECK: Trachea midline, full range of motion, supple. LUNGS: Breath sounds equal, clear to auscultation bilaterally, no wheezes, no crackles, no accessory muscle use. HEART: Regular rate and rhythm, S1, S2 without murmur, rub or gallop. ABDOMEN: Soft, nontender, nondistended, normoactive bowel sounds, no guarding, no rebound, no hepatosplenomegaly, no masses appreciated. EXTREMITIES: 2+ pulses, warm, well-perfused, no edema. NEUROLOGICAL: Cranial nerves II through XII grossly intact. Normal speech, gait is stable. PSYCH: Normal mood, normal affect. SKIN: Warm, dry, normal turgor, no rashes or lesions noted CBCD WBC 6.3 K/mm3 (4.0-10.0) 08/11/17 09:15 RBC 4.03 M/mm3 (3.60-5.2) 08/11/17 09:15 Hgb 12.7 GM/dL (10.7-15.3) 08/11/17 09:15 Hct 39.1 % (32.4-45.2) 08/11/17 09:15 MCV 96.9 fl (80-96) H 08/11/17 09:15 MCHC 32.6 g/dl (32.0-36.0) 08/11/17 09:15 RDW 13.6 % (11.6-15.6) 08/11/17 09:15 Plt Count 233 K/MM3 (134-434) 08/11/17 09:15 MPV 8.5 fl (7.5-11.1) 08/11/17 09:15 CMP Sodium 141 mmol/L (136-145) 08/11/17 09:15 Potassium 4.2 mmol/L (3.5-5.1) 08/11/17 09:15 Chloride 108 mmol/L (98-107) H 08/11/17 09:15 Carbon Dioxide 21 mmol/L (21-32) 08/11/17 09:15 Anion Gap 12 (8-16) 08/11/17 09:15 BUN 8 mg/dL (7-18) 08/11/17 09:15 Creatinine 0.6 mg/dL (0.55-1.02) 08/11/17 09:15 Creat Clearance w eGFR > 60 (>60) 08/11/17 09:15 Random Glucose 78 mg/dL (74-106) 08/11/17 09:15 Calcium 9.1 mg/dL (8.5-10.1) 08/11/17 09:15 Total Bilirubin 0.4 mg/dL (0.2-1.0) 08/11/17 09:15 AST 84 U/L (15-37) H D 08/11/17 09:15 ALT 181 U/L (12-78) H 08/11/17 09:15 Alkaline Phosphatase 166 U/L (45-117) H 08/11/17 09:15 Total Protein 7.0 g/dl (6.4-8.2) 08/11/17 09:15 Albumin 3.1 g/dl (3.4-5.0) L 08/11/17 09:15 Current Medications Generic Name Dose Route Start Last Admin Trade Name Faizan PRN Reason Stop Dose Admin Buspirone HCl 10 mg 08/09/17 10:00 08/11/17 10:38 Buspar - PO Not Given DAILY JIGNESH Fluoxetine HCl 10 mg 08/09/17 10:00 08/11/17 10:38 Prozac - PO Not Given DAILY JIGNESH Metronidazole 500 mg in 100 mls @ 100 mls/hr 08/09/17 03:00 08/11/17 14:15 Flagyl 500mg Premixed Ivpb - IVPB 100 mls/hr Q6H-IV JIGNESH Administration Levofloxacin 750 mg in 150 mls @ 100 mls/hr 08/09/17 01:45 08/10/17 21:12 Levaquin 750 Mg Premixed Ivpb - IVPB 100 mls/hr HS JIGNESH Administration Dextrose/Sodium Chloride 1,000 mls @ 125 mls/hr 08/11/17 15:15 D5-Ns - IV ASDIR JIGNESH Home Medications Medication Instructions Recorded Buspirone HCl [Buspar -] 10 mg PO DAILY 04/21/17 Fluoxetine HCl [Prozac -] 10 mg PO DAILY 04/21/17 Laboratory Tests 08/08/17 08/09/17 08/10/17 18:30 07:50 12:54 AST 222 H 265 H 110 H D ALT 171 H 327 H D 213 H D Alkaline Phosphatase 163 H 167 H 174 H 08/11/17 09:15 AST 84 H D ALT 181 H Alkaline Phosphatase 166 H US abdomen: cholelithiasis with mild gallbladder wall thickening and pericholecystic fluid ASSESSMENT/PLAN: 51F w/ PMH of anxiety and panic attacks who presents with acute diffuse abdominal pain, found to have abnormal LFTs and US findings consistent with cholecystitis. #Acute cholecystitis with elevated transaminitis can't r/o choldecholithiasis , on IVF , IV antibiotic, GI and Surgery on the case and appreciated. # Acute Transaminitis : LFts trending down, will continue to monitor. #anxiety continue home buspar and prozac FOR MRCP Visit type - Emergency Visit Emergency Visit: Yes ED Registration Date: 08/09/17 Care time: The patient presented to the Emergency Department on the above date and was hospitalized for further evaluation of their emergent condition. - New Patient This patient is new to me today: No - Critical Care Critical Care patient: No
[2017-08-11] MEDS: DEXTROSE 5%-NORMAL SALINE 1,000 ML IV SCH (15:30)
[2017-08-11] MEDS: LEVOFLOXACIN 750 MG IVPB 750 MG/150 ML BAG IVPB SCH (22:06)
[2017-08-12] MEDS: DEXTROSE 5%-NORMAL SALINE 1,000 ML IV SCH ×3 (02:11→15:39)
[2017-08-12 07:03] LABS: BASO % 0.4 % (0-2.0); EOS % 2.3 % (0-4.5); HEMATOCRIT 38.2 % (32.4-45.2); HEMOGLOBIN 12.9 GM/dL (10.7-15.3); MCH 32.6 pg (25.7-33.7); MCHC 33.7 g/dl (32.0-36.0); MEAN CELL VOLUME 96.9 fl (80-96); MEAN PLT VOLUME 8.7 fl (7.5-11.1); MONO % 9.3 % (3.8-10.2); PLATELET COUNT 293 K/MM3 (134-434); RBC 3.94 M/mm3 (3.60-5.2); RDW 13.5 % (11.6-15.6); WHITE BLOOD COUNT 5.8 K/mm3 (4.0-10.0)
[2017-08-12 07:37] LABS: ALK PHOS 150 U/L (45-117); ANION GAP 8 (8-16); BILIRUBIN,TOTAL 0.3 mg/dL (0.2-1.0); BLOOD UREA NITROGEN 5 mg/dL (7-18); CALCIUM 8.6 mg/dL (8.5-10.1); CHLORIDE 108 mmol/L (98-107); CO2 25 mmol/L (21-32); CREATININE 0.6 mg/dL (0.55-1.02); GLUCOSE,RANDOM 148 mg/dL (74-106); POTASSIUM 3.7 mmol/L (3.5-5.1); SGOT/AST 74 U/L (15-37); SGPT/ALT 153 U/L (12-78); SODIUM 141 mmol/L (136-145)
[2017-08-12] MEDS ORDERED: LEVOFLOXACIN 750 MG IVPB 750 MG/150 ML BAG IVPB ONE (08:09)
[2017-08-12] MEDS ORDERED: PT OWN MED DRAWER 7, Y5N ONE ×2 (09:04→22:15)
[2017-08-12] MEDS: busPIRone HCL 10 MG TABLET (FP) PO SCH (09:33)
[2017-08-12] MEDS: FLUoxetine HCL 10 MG CAPSULE (FP) PO SCH (09:33)
[2017-08-12] MEDS: METRONIDAZOLE 500 MG PREMIXED 500 MG/100 ML MG IVPB SCH ×3 (10:41→21:18)
--- NOTE | 2017-08-12 11:24 | PN ---
Progress Note, Physician History of Present Illness: Asymptomatic. No Events. Comfortable - Current Medication List Current Medications: Active Medications Buspirone HCl (Buspar -) 10 mg PO DAILY [facility] Last Admin: 08/12/17 09:33 Dose: Not Given Fluoxetine HCl (Prozac -) 10 mg PO DAILY [facility] Last Admin: 08/12/17 09:33 Dose: Not Given Dextrose/Sodium Chloride (D5-Ns -) 1,000 mls @ 125 mls/hr IV ASDIR [facility] Last Admin: 08/12/17 10:41 Dose: 125 mls/hr Metronidazole (Flagyl 500mg Premixed Ivpb -) 500 mg in 100 mls @ 100 mls/hr IVPB Q6H-IV [facility] Last Admin: 08/12/17 10:41 Dose: 100 mls/hr - Objective Vital Signs: Vital Signs Temperature 98 F 08/12/17 09:08 Pulse Rate 57 L 08/12/17 09:08 Respiratory Rate 18 08/12/17 09:08 Blood Pressure 128/67 08/12/17 09:08 O2 Sat by Pulse Oximetry (%) 99 08/11/17 21:00 Constitutional: Yes: Well Nourished, No Distress, Calm Eyes: Yes: Conjunctiva Clear HENT: Yes: Atraumatic Neck: Yes: Supple Cardiovascular: Yes: Regular Rate and Rhythm Respiratory: Yes: Regular Gastrointestinal: Yes: Normal Bowel Sounds, Soft. No: Distention, Melena, Rectal Bleeding, Tenderness, Tenderness, Epigastrium, Tenderness, Rebound, Vomiting Neurological: Yes: Alert, Oriented Labs: CBC, BMP 08/12/17 06:40 08/12/17 06:40 INR, PTT INR 1.16 (0.82-1.09) H 08/09/17 07:50 Abnormal Lab Results 08/12/17 08/12/17 06:40 06:40 MCV 96.9 H Chloride 108 H BUN 5 L D Random Glucose 148 H D AST 74 H ALT 153 H Alkaline Phosphatase 150 H Albumin 3.0 L Problem List - Problems (1) Cholelithiasis Code(s): K80.20 - CALCULUS OF GALLBLADDER W/O CHOLECYSTITIS W/O OBSTRUCTION (2) Abdominal pain Code(s): R10.9 - UNSPECIFIED ABDOMINAL PAIN Assessment/Plan Clinically improved. Blood work results noted - trending down. Awaiting MRCP. MRCP
--- NOTE | 2017-08-12 11:56 | PN ---
Progress Note (short form) - Note Progress Note: Awaiting results of MRCP --> if negative, will schedule pt for lap juliet
--- NOTE | 2017-08-12 15:58 | PN ---
Physical Exam: SUBJECTIVE: Patient seen and examined. No acute events overnight. Pt denies abdominal pain, n/v/d/c, fevers, chills. endorses appetite. OBJECTIVE: Vital Signs Period Temp Pulse Resp BP Sys/Harper Pulse Ox Last 24 Hr 97.8 F-98.6 F 57-66 18-20 115-135/67-75 98-99 GENERAL: The patient is awake, alert, and fully oriented, in no acute distress. HEENT: NC, AT LUNGS: Breath sounds equal, clear to auscultation bilaterally, no wheezes, no crackles, no accessory muscle use. HEART: Regular rate and rhythm, S1, S2 without murmur, rub or gallop. ABDOMEN: Soft, nontender, nondistended, normoactive bowel sounds, no guarding, no rebound, no hepatosplenomegaly, no masses. EXTREMITIES: 2+ pulses, warm, well-perfused, no edema. NEUROLOGICAL: Cranial nerves II through XII grossly intact. Normal speech, gait not observed. Laboratory Results - last 24 hr 08/12/17 08/12/17 06:40 06:40 WBC 5.8 RBC 3.94 Hgb 12.9 Hct 38.2 MCV 96.9 H MCH 32.6 MCHC 33.7 RDW 13.5 Plt Count 293 D MPV 8.7 Neutrophils % 67.0 Lymphocytes % 21.0 Monocytes % 9.3 Eosinophils % 2.3 Basophils % 0.4 Sodium 141 Potassium 3.7 Chloride 108 H Carbon Dioxide 25 Anion Gap 8 BUN 5 L D Creatinine 0.6 Creat Clearance w eGFR > 60 Random Glucose 148 H D Calcium 8.6 Total Bilirubin 0.3 D AST 74 H ALT 153 H Alkaline Phosphatase 150 H Total Protein 7.0 Albumin 3.0 L Active Medications Generic Name Dose Route Start Last Admin Trade Name Freq PRN Reason Stop Dose Admin Buspirone HCl 10 mg 08/09/17 10:00 08/12/17 09:33 Buspar - PO Not Given DAILY [facility] Fluoxetine HCl 10 mg 08/09/17 10:00 08/12/17 09:33 Prozac - PO Not Given DAILY JIGN[facility] Dextrose/Sodium Chloride 1,000 mls @ 125 mls/hr 08/11/17 15:15 08/12/17 15:39 D5-Ns - IV Not Given ASDIR J[facility] Metronidazole 500 mg in 100 mls @ 100 mls/hr 08/12/17 09:00 08/12/17 15:38 Flagyl 500mg Premixed Ivpb - IVPB 100 mls/hr Q6H-IV JIGN[facility] Administration ASSESSMENT/PLAN: 51F w/ PMH of anxiety and panic attacks who presents with acute diffuse abdominal pain, found to have abnormal LFTs and US findings consistent with cholecystitis. #abdominal pain -likely 2/2 choledocolithiasis. If possible, it is likely that the stone passed. -transaminitis and elevated ALP continuing to downtrend -US shows findings consistent with cholecystitis -levaquin and flagyl -NS @ 125 -per surgery and GI, await results of MRCP -pain control with IV motrin -f/u MRCP #anxiety -continue home buspar and prozac #FEN/ppx -D5-NS @ 125 -electrolytes wnl -clear liquids, NPO after midnight -no GI ppx -SCDs -Mario Soto MD PGY1 Visit type - Emergency Visit Emergency Visit: Yes ED Registration Date: 08/09/17 Care time: The patient presented to the Emergency Department on the above date and was hospitalized for further evaluation of their emergent condition. - New Patient This patient is new to me today: No - Critical Care Critical Care patient: No
--- NOTE | 2017-08-12 23:21 | PN ---
Teaching Attending Note Name of Resident: Mario Soto ATTENDING PHYSICIAN STATEMENT I saw and evaluated the patient. I reviewed the resident's note and discussed the case with the resident. I agree with the resident's findings and plan as documented. SUBJECTIVE: Patient is feeling better, with no acute distress. OBJECTIVE: Vital Signs Temperature 98.3 F 08/12/17 19:00 Pulse Rate 62 08/12/17 19:00 Respiratory Rate 18 08/12/17 19:00 Blood Pressure 143/75 08/12/17 19:00 O2 Sat by Pulse Oximetry (%) 98 08/12/17 09:00 CBCD WBC 5.8 K/mm3 (4.0-10.0) 08/12/17 06:40 RBC 3.94 M/mm3 (3.60-5.2) 08/12/17 06:40 Hgb 12.9 GM/dL (10.7-15.3) 08/12/17 06:40 Hct 38.2 % (32.4-45.2) 08/12/17 06:40 MCV 96.9 fl (80-96) H 08/12/17 06:40 MCHC 33.7 g/dl (32.0-36.0) 08/12/17 06:40 RDW 13.5 % (11.6-15.6) 08/12/17 06:40 Plt Count 293 K/MM3 (134-434) D 08/12/17 06:40 MPV 8.7 fl (7.5-11.1) 08/12/17 06:40 CMP Sodium 141 mmol/L (136-145) 08/12/17 06:40 Potassium 3.7 mmol/L (3.5-5.1) 08/12/17 06:40 Chloride 108 mmol/L (98-107) H 08/12/17 06:40 Carbon Dioxide 25 mmol/L (21-32) 08/12/17 06:40 Anion Gap 8 (8-16) 08/12/17 06:40 BUN 5 mg/dL (7-18) L D 08/12/17 06:40 Creatinine 0.6 mg/dL (0.55-1.02) 08/12/17 06:40 Creat Clearance w eGFR > 60 (>60) 08/12/17 06:40 Random Glucose 148 mg/dL (74-106) H D 08/12/17 06:40 Calcium 8.6 mg/dL (8.5-10.1) 08/12/17 06:40 Total Bilirubin 0.3 mg/dL (0.2-1.0) D 08/12/17 06:40 AST 74 U/L (15-37) H 08/12/17 06:40 ALT 153 U/L (12-78) H 08/12/17 06:40 Alkaline Phosphatase 150 U/L (45-117) H 08/12/17 06:40 Total Protein 7.0 g/dl (6.4-8.2) 08/12/17 06:40 Albumin 3.0 g/dl (3.4-5.0) L 08/12/17 06:40 Current Medications Generic Name Dose Route Start Last Admin Trade Name Freq PRN Reason Stop Dose Admin Buspirone HCl 10 mg 08/09/17 10:00 08/12/17 09:33 Buspar - PO Not Given DAILY J[facility] Fluoxetine HCl 10 mg 08/09/17 10:00 08/12/17 09:33 Prozac - PO Not Given DAILY [facility] Dextrose/Sodium Chloride 1,000 mls @ 125 mls/hr 08/11/17 15:15 08/12/17 15:39 D5-Ns - IV Not Given ASDIR [facility] Metronidazole 500 mg in 100 mls @ 100 mls/hr 08/12/17 09:00 08/12/17 21:18 Flagyl 500mg Premixed Ivpb - IVPB 100 mls/hr Q6H-IV [facility] Administration Home Medications Medication Instructions Recorded Buspirone HCl [Buspar -] 10 mg PO DAILY 04/21/17 Fluoxetine HCl [Prozac -] 10 mg PO DAILY 04/21/17 Laboratory Tests 08/08/17 08/09/17 08/10/17 18:30 07:50 12:54 AST 222 H 265 H 110 H D ALT 171 H 327 H D 213 H D Alkaline Phosphatase 163 H 167 H 174 H 08/11/17 08/12/17 09:15 06:40 AST 84 H D 74 H ALT 181 H 153 H Alkaline Phosphatase 166 H 150 H US abdomen: cholelithiasis with mild gallbladder wall thickening and pericholecystic fluid ASSESSMENT/PLAN: 51F w/ PMHx of anxiety and panic attacks who presents with acute diffuse abdominal pain, found to have abnormal LFTs and US findings consistent with cholecystitis. #Acute cholecystitis with elevated transaminitis can't r/o choldecholithiasis , on IVF , IV antibiotic, GI and Surgery on the case and appreciated. waiting for MRCP report. # Acute Transaminitis : LFts continues to trend down, waiting for MRCP report. #anxiety continue home buspar and prozac continue MRCP is done waiting for the report to be read.
[2017-08-13] MEDS: METRONIDAZOLE 500 MG PREMIXED 500 MG/100 ML MG IVPB SCH ×2 (02:30→09:40)
[2017-08-13 07:59] LABS: HEMATOCRIT 36.6 % (32.4-45.2); HEMOGLOBIN 12.1 GM/dL (10.7-15.3); MCH 32.1 pg (25.7-33.7); MCHC 33.1 g/dl (32.0-36.0); MEAN CELL VOLUME 96.9 fl (80-96); MEAN PLT VOLUME 8.3 fl (7.5-11.1); PLATELET COUNT 254 K/MM3 (134-434); RBC 3.78 M/mm3 (3.60-5.2); RDW 13.4 % (11.6-15.6)
[2017-08-13] MEDS ORDERED: LEVOFLOXACIN 500 MG IVPB 500 MG/100 ML BAG IVPB ONE (08:00)
[2017-08-13 08:07] LABS: CALCIUM 8.8 mg/dL (8.5-10.1); CHLORIDE 111 mmol/L (98-107); POTASSIUM 3.5 mmol/L (3.5-5.1); SODIUM 145 mmol/L (136-145)
[2017-08-13 08:14] LABS: ALBUMIN 2.7 g/dl (3.4-5.0); ALK PHOS 118 U/L (45-117); ANION GAP 10 (8-16); BILIRUBIN,TOTAL 0.4 mg/dL (0.2-1.0); BLOOD UREA NITROGEN 3 mg/dL (7-18); CO2 24 mmol/L (21-32); CREATININE 0.6 mg/dL (0.55-1.02); GLUCOSE,RANDOM 142 mg/dL (74-106); SGOT/AST 81 U/L (15-37); SGPT/ALT 128 U/L (12-78)
[2017-08-13] MEDS: DEXTROSE 5%-NORMAL SALINE 1,000 ML IV SCH ×4 (08:26→17:20)
--- NOTE | 2017-08-13 09:13 | PN ---
Progress Note (short form) - Note Progress Note: MRCP results reviewed --> no evidence of choledochlithiasis. Patient added on to OR shedule for lap juliet possible open today...after 10AM Keep patient NPO GI / DVT ppx Above discussed with Dr. Giordano and agrees
[2017-08-13] MEDS ORDERED: POTASSIUM CHLORIDE TABS 20 MEQ TABLET.ER (FP) PO ONE (09:15)
[2017-08-13] MEDS ORDERED: PT OWN MED DRAWER 7, Y5N ONE ×2 (09:35→19:12)
[2017-08-13] MEDS: FLUoxetine HCL 10 MG CAPSULE (FP) PO SCH (09:40)
[2017-08-13] MEDS: busPIRone HCL 10 MG TABLET (FP) PO SCH (09:40)
--- NOTE | 2017-08-13 11:47 | PN ---
Progress Note, Physician History of Present Illness: Asymptomatic. No Events. Comfortable. MRI results noted. Pt aware - Current Medication List Current Medications: Active Medications Buspirone HCl (Buspar -) 10 mg PO DAILY [facility] Last Admin: 08/13/17 09:40 Dose: Not Given Fluoxetine HCl (Prozac -) 10 mg PO DAILY [facility] Last Admin: 08/13/17 09:40 Dose: Not Given Dextrose/Sodium Chloride (D5-Ns -) 1,000 mls @ 125 mls/hr IV ASDIR [facility] Last Admin: 08/13/17 08:26 Dose: 125 mls/hr Metronidazole (Flagyl 500mg Premixed Ivpb -) 500 mg in 100 mls @ 100 mls/hr IVPB Q6H-IV [facility] Last Admin: 08/13/17 09:40 Dose: 100 mls/hr - Objective Vital Signs: Vital Signs Temperature 98.1 F 08/13/17 09:00 Pulse Rate 64 08/13/17 09:00 Respiratory Rate 18 08/13/17 09:00 Blood Pressure 134/78 08/13/17 09:00 O2 Sat by Pulse Oximetry (%) 98 08/12/17 21:00 Constitutional: Yes: No Distress, Calm Gastrointestinal: Yes: Normal Bowel Sounds, Soft Neurological: Yes: Alert, Oriented Labs: CBC, BMP 08/13/17 06:40 08/13/17 06:40 INR, PTT INR 1.16 (0.82-1.09) H 08/09/17 07:50 Laboratory Results - last 24 hr 08/13/17 08/13/17 06:40 06:40 WBC 5.0 RBC 3.78 Hgb 12.1 Hct 36.6 MCV 96.9 H MCH 32.1 MCHC 33.1 RDW 13.4 Plt Count 254 MPV 8.3 Sodium 145 Potassium 3.5 Chloride 111 H Carbon Dioxide 24 Anion Gap 10 BUN 3 L D Creatinine 0.6 Creat Clearance w eGFR > 60 Random Glucose 142 H Calcium 8.8 Total Bilirubin 0.4 D AST 81 H ALT 128 H Alkaline Phosphatase 118 H D Total Protein 6.0 L Albumin 2.7 L Problem List - Problems (1) Cholelithiasis Code(s): K80.20 - CALCULUS OF GALLBLADDER W/O CHOLECYSTITIS W/O OBSTRUCTION (2) Abdominal pain Code(s): R10.9 - UNSPECIFIED ABDOMINAL PAIN Assessment/Plan Clinically improved. Blood work results noted - trending down. Awaiting MRCP. cholecystectomy, per sx today
[2017-08-13] MEDS ORDERED: BUPIVACAINE HCL/PF 0.5% (5MG/ML) 10 ML VIAL ONE (11:50)
[2017-08-13] MEDS ORDERED: fentaNYL CITRATE 250 MCG/5 ML VIAL ONE (12:29)
[2017-08-13] MEDS ORDERED: PROPOFOL 20 ML ONE (12:30)
[2017-08-13] MEDS ORDERED: MIDAZOLAM HCL 2 MG/2 ML SINGLE DOSE VIAL ONE (12:30)
[2017-08-13] MEDS ORDERED: ROCURONIUM BROMIDE 50 MG/5 ML VIAL ONE (12:30)
--- NOTE | 2017-08-13 13:27 | EKG ---
Test Reason : Blood Pressure : / mmHG Vent. Rate : 061 BPM Atrial Rate : 061 BPM P-R Int : 148 ms QRS Dur : 082 ms QT Int : 406 ms P-R-T Axes : 009 014 042 degrees QTc Int : 408 ms NORMAL SINUS RHYTHM NORMAL ECG NO PREVIOUS ECGS AVAILABLE Confirmed by DANNIE HOLLINS MD ([id number]) on 08/13/2017 1:27:35 PM Referred By: Kimberly ACEVEDO Confirmed By:DANNIE HOLLINS MD
[2017-08-13] MEDS ORDERED: ONDANSETRON 4 MG/2 ML VIAL ONE (13:44)
[2017-08-13] MEDS ORDERED: DEXAMETHASONE SOD PHOSPHATE 4 MG/1 ML VIAL ONE (13:44)
[2017-08-13] MEDS ORDERED: NEOSTIGMINE METHYLSULFATE 0.5 MG/ML - 10 ML MDV ONE (14:02)
[2017-08-13] MEDS ORDERED: GLYCOPYRROLATE 0.2 MG/1 ML VIAL ONE (14:02)
[2017-08-13] MEDS ORDERED: BUPIVACAINE HCL/PF 0.75% 10 ML VIAL NR ONE ×2 (14:03)
--- NOTE | 2017-08-13 14:17 | OP ---
Operative Note - Note: Operative Date: 08/13/17 Pre-Operative Diagnosis: Acute cholecystitis/cholelithiasis Operation: Lap cholecystectomy Post-Operative Diagnosis: Same as Pre-op Surgeon: Samir Giordano [employer] Professional: Mario Esquivel Anesthesiologist/BALLOON MAKER: Lester Capps Anesthesia: General Specimens Removed: gallbladder Estimated Blood Loss (mls): 15 Fluid Volume Replaced (mls): 1,000 Operative Report Dictated: Yes
--- NOTE | 2017-08-13 14:18 | SURG ---
Surgery Policy Advisor Note Policy Advisor: Mario Esquivel PA-C Date of Service: 08/13/17 Diagnosis: Acute cholecystitis/cholelithiasis Procedure: Laparoscopic cholecystectomy I was present for the entirety of the operative procedure. For further detail, please refer to operative report. Visit type - Case Type Case Type: ED Admission
[2017-08-13] MEDS ORDERED: ONDANSETRON 4 MG/2 ML VIAL IVPUSH PRN (14:26)
[2017-08-13] MEDS ORDERED: PROMETHAZINE HCL 25 MG/1 ML VIAL IVPUSH PRN (14:26)
[2017-08-13] MEDS ORDERED: HYDROmorphone HCL CARPU-JECT 1 MG/1 ML DISP.SYRIN IVPUSH PRN (14:26)
[2017-08-13] MEDS ORDERED: LACTATED RINGERS SOLUTION 1,000 ML IV SCH (14:30)
[2017-08-13] MEDS ORDERED: HYDROmorphone HCL CARPU-JECT 2 MG/1 ML DISP.SYRIN ONE (14:52)
[2017-08-13] MEDS ORDERED: METRONIDAZOLE 500 MG PREMIXED 500 MG/100 ML MG IVPB SCH (15:00)
[2017-08-13] MEDS ORDERED: oxyCODONE HCL 5 MG TABLET PO PRN (15:01)
[2017-08-13] MEDS ORDERED: ACETAMINOPHEN 325 MG TABLET (FP) PO PRN (15:01)
--- NOTE | 2017-08-13 17:49 | PN ---
Physical Exam: SUBJECTIVE: Patient seen and examined. No acute events overnight. Pt denies abdominal pain, n/v/d/c, and endorses appetite. OBJECTIVE: Vital Signs Period Temp Pulse Resp BP Sys/Harper Pulse Ox Last 24 Hr 97.3 F-98.4 F 59-90 16-20 109-148/55-86 94-98 GENERAL: The patient is awake, alert, and fully oriented, in no acute distress. HEENT: NC, AT LUNGS: Breath sounds equal, clear to auscultation bilaterally, no wheezes, no crackles, no accessory muscle use. HEART: Regular rate and rhythm, S1, S2 without murmur, rub or gallop. ABDOMEN: Soft, nontender, nondistended, normoactive bowel sounds, no guarding, no rebound, no hepatosplenomegaly, no masses. EXTREMITIES: 2+ pulses, warm, well-perfused, no edema. NEUROLOGICAL: Cranial nerves II through XII grossly intact. Normal speech, gait not observed. Laboratory Results - last 24 hr 08/13/17 08/13/17 08/13/17 06:40 06:40 12:20 WBC 5.0 RBC 3.78 Hgb 12.1 Hct 36.6 MCV 96.9 H MCH 32.1 MCHC 33.1 RDW 13.4 Plt Count 254 MPV 8.3 Sodium 145 Potassium 3.5 Chloride 111 H Carbon Dioxide 24 Anion Gap 10 BUN 3 L D Creatinine 0.6 Creat Clearance w eGFR > 60 Random Glucose 142 H Calcium 8.8 Total Bilirubin 0.4 D AST 81 H ALT 128 H Alkaline Phosphatase 118 H D Total Protein 6.0 L Albumin 2.7 L Urine HCG, Qual Negative Active Medications Generic Name Dose Route Start Last Admin Trade Name Freq PRN Reason Stop Dose Admin Acetaminophen 325 mg 08/13/17 15:01 Tylenol - PO 08/16/17 15:00 Q4H PRN PAIN Buspirone HCl 10 mg 08/14/17 10:00 Buspar - PO DAILY [facility] Fluoxetine HCl 10 mg 08/14/17 10:00 Prozac - PO DAILY [facility] Hydromorphone HCl 0.5 mg 08/13/17 14:26 08/13/17 14:55 Dilaudid Injection - IVPUSH 0.5 mg [id number] PRN Administration PAIN Lactated Ringer's 1,000 mls @ 125 mls/hr 08/13/17 14:30 08/13/17 17:24 Lactated Ringers Solution IV Not Given ASDIR [facility] Dextrose/Sodium Chloride 1,000 mls @ 125 mls/hr 08/13/17 14:40 08/13/17 17:20 D5-Ns - IV 125 mls/hr ASDIR [facility] Administration Metronidazole 500 mg in 100 mls @ 100 mls/hr 08/13/17 15:00 08/13/17 17:24 Flagyl 500mg Premixed Ivpb - IVPB 100 mls/hr Q6H-IV [facility] Administration Ondansetron HCl 4 mg 08/13/17 14:26 08/13/17 17:08 Zofran Injection IVPUSH 4 mg Q6H PRN Administration NAUSEA AND/OR VOMITING Oxycodone HCl 5 mg 08/13/17 15:01 Roxicodone - PO Q4H PRN PAIN 6-10 Promethazine HCl 12.5 mg 08/13/17 14:26 Phenergan Injection - IVPUSH Q6H PRN NAUSEA-FOR RESCUE AFTER 15 MIN MRCP: cholelithiasis w/ hyperemia of adjacent liver parenchyma; no choledocolithiasis or CBD dilation; heterogenous pancreas with multifocal atrophy possibly 2/2 chronic cholecystitis ASSESSMENT/PLAN: 51F w/ PMH of anxiety and panic attacks who presents with acute diffuse abdominal pain, found to have abnormal LFTs and US findings consistent with cholecystitis. #abdominal pain -likely 2/2 choledocolithiasis that spontaneously pased -transaminitis and elevated ALP continuing to downtrend -levaquin and flagyl -NS @ 125 -MRCP: cholelithiasis w/ hyperemia of adjacent liver parenchyma -pt to go for cholecystectomy -no need for abx after procedure as lpt received levaquin and flagyl before #anxiety -continue home buspar and prozac #Uterine lesion -1.8cm uterine lesion found on MRCP likely fibroid -pt informed and told to f/u with OBGYN for pelvic US #FEN/ppx -D5-NS @ 125 -K repleted -NPO for surgery -no GI ppx -SCDs -Mario Soto MD PGY1 Visit type - Emergency Visit Emergency Visit: Yes ED Registration Date: 08/09/17 Care time: The patient presented to the Emergency Department on the above date and was hospitalized for further evaluation of their emergent condition. - New Patient This patient is new to me today: No - Critical Care Critical Care patient: No
--- NOTE | 2017-08-13 18:36 | PN ---
Teaching Attending Note Name of Resident: Mario Soto ATTENDING PHYSICIAN STATEMENT I saw and evaluated the patient. I reviewed the resident's note and discussed the case with the resident. I agree with the resident's findings and plan as documented. SUBJECTIVE:seen at 11 am No fever or chills, ABd pain resolved . OBJECTIVE: NAD Cv: RRR Lungs : CTAB ext : no edema Abd: soft, NT, ND , NL BS ASSESSMENT AND PLAN: 51 y/o lady withh/o panic attacks who presented with RUQ pain and was found to have elevated LFTS 1- RUQ pain: the clinical picture , along with the improving LFTS indicate passage of stones . MRCP with thickened gal bladder - CCY today - follow pathology - no need for Abx after sx , received levaquin and flagyl prior - follow LFTS - clears, advance to soft in am Dipso : possible dc tomorrow
[2017-08-14] MEDS: DEXTROSE 5%-NORMAL SALINE 1,000 ML IV SCH (02:32)
[2017-08-14 07:29] LABS: BASO % 0.2 % (0-2.0); EOS % 0.1 % (0-4.5); HEMOGLOBIN 11.8 GM/dL (10.7-15.3); LYMPH % 15.5 % (8-40); MCH 31.7 pg (25.7-33.7); MCHC 32.8 g/dl (32.0-36.0); MEAN CELL VOLUME 96.7 fl (80-96); MEAN PLT VOLUME 8.4 fl (7.5-11.1); MONO % 9.8 % (3.8-10.2); NEUT % 74.4 % (42.8-82.8); PLATELET COUNT 272 K/MM3 (134-434); RBC 3.72 M/mm3 (3.60-5.2); RDW 13.3 % (11.6-15.6)
[2017-08-14 07:56] LABS: ALBUMIN 2.9 g/dl (3.4-5.0); ANION GAP 5 (8-16); BILIRUBIN,TOTAL 0.4 mg/dL (0.2-1.0); BLOOD UREA NITROGEN 3 mg/dL (7-18); CALCIUM 8.6 mg/dL (8.5-10.1); CHLORIDE 108 mmol/L (98-107); CO2 29 mmol/L (21-32); CREATININE 0.7 mg/dL (0.55-1.02); GLUCOSE,RANDOM 123 mg/dL (74-106); POTASSIUM 3.9 mmol/L (3.5-5.1); SGOT/AST 78 U/L (15-37); SGPT/ALT 130 U/L (12-78); SODIUM 142 mmol/L (136-145); TOT PROT 6.5 g/dl (6.4-8.2)
[2017-08-14 07:57] LABS: ALK PHOS 117 U/L (45-117)
[2017-08-14] MEDS ORDERED: PT OWN MED DRAWER 7, Y5N ONE (09:14)
[2017-08-14] MEDS ORDERED: FLUoxetine HCL 10 MG CAPSULE (FP) PO SCH (10:00)
[2017-08-14] MEDS ORDERED: busPIRone HCL 10 MG TABLET (FP) PO SCH (10:00)
--- NOTE | 2017-08-14 10:00 | PN ---
Progress Note (short form) - Note Progress Note: Attending Surgeon POD #1 No c/o; tolerated diet VSS AF abdomen-soft; flat; non tender; port site dressings c/d/i labs reviewed IMP: doing well PLAN: Advance diet; d/c antibiotics; ambulate; d/c home to office f/u 7-10 days Samir Giordano MD FACS
--- NOTE | 2017-08-14 11:10 | OP ---
DATE OF OPERATION: 08/13/2017 PREOPERATIVE DIAGNOSIS: Acute cholecystitis, cholelithiasis. POSTOPERATIVE DIAGNOSIS: Acute cholecystitis, cholelithiasis. PROCEDURE: Laparoscopic cholecystectomy. SURGEON: Samir Giordano MD FLAT SORTING MACHINE CLERK: Mario Esquivel PA-C ANESTHESIA: General. OPERATIVE FINDINGS: Cholelithiasis and acute cholecystitis. The rest of the findings were unremarkable. DESCRIPTION OF PROCEDURE: The patient was placed on the operating table in supine position, and after the induction of general anesthesia, the patients abdomen was prepped with ChloraPrep and draped in sterile fashion. A time-out was taken, and pneumoperitoneum was established above the umbilicus using a Veress needle to an intraabdominal pressure of 15 mmHg. Subsequently, a 5-mm supraumbilical port was placed and additional 5-mm lateral ports and a subxiphoid 12-mm port. The gallbladder was placed on cephalad and lateral traction, and dissection begun in the hepatocystic triangle. The peritoneum over the distal gallbladder was opened medially and laterally using blunt dissection and electrocautery. The cystic duct was identified emanating from the neck of the gallbladder and coursing distally to the common bile duct. It was dissected bluntly, proximally, and distally for length. The artery was similarly identified and dissected. The duct and artery were clipped twice proximally and twice distally with large hemoclips and divided using the EndoShears after a critical view of safety was taken. The gallbladder was then removed from the liver bed in a retrograde fashion using electrocautery. Prior to removal from the edge of the liver, hemostasis was verified and noted to be good. The gallbladder was then removed from the edge of the liver, placed in a specimen retrieval bag, and brought out through the subxiphoid port and sent for pathological examination. Pneumoperitoneum was reestablished, hemostasis verified again, and then, all ports were removed under laparoscopic vision without evidence of bleeding from the port sites. The pneumoperitoneum was released, and all port sites were infiltrated with 0.5% Marcaine. The skin incisions were closed with 4-0 Monocryl in a subcuticular fashion, and the wounds dressed with Steri-Strips and Band-Aid dressings. The procedure was terminated at this point, and the patient aroused from general anesthesia and transferred to the post-anesthesia care unit in stable condition, awake and alert. ESTIMATED BLOOD LOSS: 15 mL. REPLACEMENTS: Crystalloid. DRAINS: None. SPECIMENS: Gallbladder and contents to Pathology. I, Samir Giordano MD, was physically present in the operating room from the time the patient was placed on the operating table until she was transferred to the post-anesthesia care unit in my accompaniment. MD DENIA Moffett/[id number] MTDD
--- NOTE | 2017-08-14 14:17 | PN ---
Teaching Attending Note Name of Resident: Mario Soto ATTENDING PHYSICIAN STATEMENT I saw and evaluated the patient. I reviewed the resident's note and discussed the case with the resident. I agree with the resident's findings and plan as documented. SUBJECTIVE: no fever or chills, tolerated diet . had N/V last night after surgery . no recurrence today. abd pain is minimal. passed gas , no BM OBJECTIVE: NAD Cv: RRR Lungs : CTAB ext : no edema Abd: soft, minimal TTP in periambilical area, ND , NL BS . no rebound tenderness or guarding ASSESSMENT AND PLAN: 51 y/o lady with h/o panic attacks who presented with RUQ pain and was found to have elevated LFTS 1- RUQ pain: the clinical picture , along with the improving LFTS indicate passage of stones . - s/p CCY. doing well tolerated her diet - follow pathology - LFTS contt o improve DC home . f/u with sx .
--- NOTE | 2017-08-14 14:25 | PN ---
Progress Note, Physician Chief Complaint: Pt pain controlled, no GA complaints. - Current Medication List Current Medications: Active Medications Acetaminophen (Tylenol -) 325 mg PO Q4H PRN PRN Reason: PAIN Stop: 08/16/17 15:00 Buspirone HCl (Buspar -) 10 mg PO DAILY [facility] Last Admin: 08/14/17 09:32 Dose: Not Given Fluoxetine HCl (Prozac -) 10 mg PO DAILY [facility] Last Admin: 08/14/17 09:33 Dose: Not Given Hydromorphone HCl (Dilaudid Injection -) 0.5 mg IVPUSH [id number] PRN PRN Reason: PAIN Last Admin: 08/13/17 14:55 Dose: 0.5 mg Lactated Ringer's (Lactated Ringers Solution) 1,000 mls @ 125 mls/hr IV ASDIR [facility] Last Admin: 08/13/17 17:24 Dose: Not Given Dextrose/Sodium Chloride (D5-Ns -) 1,000 mls @ 125 mls/hr IV ASDIR [facility] Last Admin: 08/14/17 02:32 Dose: 125 mls/hr Ondansetron HCl (Zofran Injection) 4 mg IVPUSH Q6H PRN PRN Reason: NAUSEA AND/OR VOMITING Last Admin: 08/13/17 17:08 Dose: 4 mg Oxycodone HCl (Roxicodone -) 5 mg PO Q4H PRN PRN Reason: PAIN 6-10 Promethazine HCl (Phenergan Injection -) 12.5 mg IVPUSH Q6H PRN PRN Reason: NAUSEA-FOR RESCUE AFTER 15 MIN - Objective Vital Signs: Vital Signs Temperature 98.0 F 08/14/17 06:00 Pulse Rate 69 08/14/17 06:00 Respiratory Rate 18 08/14/17 06:00 Blood Pressure 133/75 08/14/17 06:00 O2 Sat by Pulse Oximetry (%) 98 08/13/17 21:00 Constitutional: Yes: Well Nourished, No Distress, Calm Musculoskeletal: Yes: WNL Neurological: Yes: WNL, Alert, Oriented ...Motor Strength: WNL Labs: CBC, BMP 08/14/17 06:45 08/14/17 06:45 INR, PTT INR 1.16 (0.82-1.09) H 08/09/17 07:50 Assessment/Plan POD#1 s/p lap juliet under GA. Doing well. D/C from anesthesia care.
--- NOTE | 2017-08-14 15:08 | DS ---
Physical Exam: SUBJECTIVE: Patient seen and examined. Yesterday afternoon, pt had cholecystecomy. She developed nausea and several episodes of emesis afterwards which resolved with anti-emetics. This am, pt states that she has no abdominal pain. She has minimal nausea and no episodes of emesis so far. She has an appetite, and she has not had a BM or passed flatus yet. She denies all other complaints. OBJECTIVE: Vital Signs Period Temp Pulse Resp BP Sys/Harper Pulse Ox Last 24 Hr 97.3 F-98.1 F 62-80 15-19 111-148/52-85 97-98 PHYSICAL EXAM GENERAL: The patient is awake, alert, and fully oriented, in no acute distress. HEENT: NC, AT, moist mucous membranes NECK: Trachea midline, full range of motion, supple. LUNGS: Breath sounds equal, clear to auscultation bilaterally, no wheezes, no crackles, no accessory muscle use. HEART: Regular rate and rhythm, S1, S2 without murmur, rub or gallop. ABDOMEN: soft, ND, minimally tender in lower quadrants EXTREMITIES: 2+ pulses, warm, well-perfused, no edema. NEUROLOGICAL: Cranial nerves II through XII grossly intact. Normal speech, gait not observed. PSYCH: Normal mood, normal affect. SKIN: Warm, dry, normal turgor, no rashes or lesions noted. LABS Laboratory Results - last 24 hr 08/14/17 08/14/17 06:45 06:45 WBC 9.0 D RBC 3.72 Hgb 11.8 Hct 36.0 MCV 96.7 H MCH 31.7 MCHC 32.8 RDW 13.3 Plt Count 272 MPV 8.4 Neutrophils % 74.4 Lymphocytes % 15.5 D Monocytes % 9.8 Eosinophils % 0.1 D Basophils % 0.2 Sodium 142 Potassium 3.9 Chloride 108 H Carbon Dioxide 29 D Anion Gap 5 L BUN 3 L Creatinine 0.7 Creat Clearance w eGFR > 60 Random Glucose 123 H Calcium 8.6 Total Bilirubin 0.4 AST 78 H ALT 130 H Alkaline Phosphatase 117 Total Protein 6.5 Albumin 2.9 L Microbiology 08/09/17 06:00 Urine - Urine Clean Catch Urine Culture - Final NO GROWTH OBTAINED MRCP: IMPRESSION: - Cholelithiasis with no definite MRI evidence of cholecystitis however mild hyperemia in the adjacent liver parenchyma raises suspicion of mild cholecystitis. Correlate with symptomatology and HIDA scan if clinically indicated. No MRI evidence of choledocholithiasis or pancreaticobiliary ductal dilatation. - Heterogeneous pancreas with multifocal atrophy possibly secondary to an element of chronic cholecystitis. No pancreatic ductal dilatation seen. Few tiny cysts in the pancreatic head and neck region are nonspecific. The differential diagnoses include pseudocyst, parenchymal cyst or cystic neoplasm-IPMN. Continued follow-up is recommended. - 1 cm right hepatic lobe cyst. - 1.8 cm uterine lesion on the coronal electrical maintenance man images with convex contour in the endometrium likely representing fibroid with submucosal component however endometrial-based lesion cannot be excluded. Correlation with pelvic ultrasound is recommended. US Abdomen: Impression: 1. Cholelithiasis with mild gallbladder wall thickening and pericholecystic fluid, suggestive of cholecystitis in the appropriate clinical setting. If clinically warranted, nuclear medicine hepatobiliary scan may be obtained to assess cystic duct patency. 2. No evidence of intrahepatic or extrahepatic biliary ductal dilatation. 2. Hepatic steatosis. HOSPITAL COURSE: Date of Admission:08/09/17 Date of Discharge: 08/14/17 51F w/ PMH of anxiety and panic attacks who presented with acute diffuse abdominal pain, found to have abnormal LFTs and US findings consistent with cholecystitis. She was treated with levaquin and flagyl, normal saline, and pain control. She received an MRCP which showed cholelithiasis w/ mild hyperemia in the adjacent liver parenchyma raising suspicion for cholecystitis, but no evidence of choledocolithiasis or pancreaticobiliary ductal dilatation. The MRCP also revealed a uterine mass which is likely a fibroid, and the pt was informed to f/u with her OBGYN for a pelvic US to further evaluate it. Her abdominal pain resolved, and her LFTs began trending down. Pt was seen by GI and general surgery. General surgery performed a laparascopic cholecystecomy, and the pt's diet was advanced as tolerated. Today, pt has normal vitals, no subjective complaints, benign abdominal exam, and is ready for discharge. She was instructed to follow up with her surgeon, PCP, and OBGYN. -Mario Soto MD PGY1 Minutes to complete discharge: 36 Discharge Summary Reason For Visit: CHOLECYSTITIS Current Active Problems Abdominal pain (Acute) Cholelithiasis (Acute) Condition: Improved - Instructions Diet, Activity, Other Instructions: You presented to the hospital with abdominal pain, and were found to have evidence of gallstones. You were given antibiotics and you underwent a cholecystectomy (gallbladder removal surgery) to prevent further episodes of abdominal pain and complications that can arise from having gallstones. Follow-ups: 1. Please visit your PCP within one week 2. Please visit your surgeon, Dr. Giordano, in 7-10 days 3. Please visit your OBGYN in 2 weeks to evaluate your uterine mass with a pelvic ultrasound. If you don't have one, we have referred you to Dr. Orr. Dr. Giordano Discharge Instructions Dear THERESA GOINS, Post Operative Instructions Physical activity Resume your normal everyday activity as tolerated no heavy lifting or exercise until seen by your surgeon. You may walk unlimited amounts of and climb stairs. You may resume driving the car when you feel safe and comfortable behind the wheel. Wound care If you have a bandage, leave it on, and keep dry for 48 - 72 hours. After that time discard the outer bandage. If there are tapes on the skin under the outer bandage, leave them in place. They will peel off in the next 7 to 10 days. Do Not peel them off. You may shower 2 days after surgery. If there are tapes present on the skin, they can get wet. Diet There are no dietary restrictions. Eat healthy, high-fiber foods. Drink 6 to 8 glasses of liquid each day. This will assist in keeping your bowels are regular. Pain management You may take Tylenol or acetaminophen or Ibuprofen (for example, Motrin, Advil etc.) Any pain prescription medication ordered should be taken as prescribed for moderate to severe pain. Call Dr. Giordano for any of the following: Severe pain not relieved by medication Fever of 101 or higher Excessive bleeding or drainage on dressing Inability to urinate Call the office at [phone] for a post operative appointment in 7 - 10 days. Referrals: Samir Giordano MD [Staff Physician] - Mayelin Salas MD [Primary Care Provider] - Gianni Orr MD [Staff Physician] - Disposition: HOME - Home Medications Comprehensive Discharge Medication List: Ambulatory Orders Buspirone HCl [Buspar -] 10 mg PO DAILY 04/21/17 Fluoxetine HCl [Prozac -] 10 mg PO DAILY 04/21/17 Ibuprofen [Motrin -] 400 mg PO TID PRN #30 tablet 08/14/17 This patient is new to me today: No Emergency Visit: Yes ED Registration Date: 08/09/17 Care time: The patient presented to the Emergency Department on the above date and was hospitalized for further evaluation of their emergent condition. Critical Care patient: No - Discharge Referral Referred to [facility] No
[2017-08-14 15:24] VITALS: BP 119/76; PULSE 68; TEMP 98.1
--- NOTE | 2017-08-15 12:59 | PATH ---
Surgical Pathology Report Patient Name: THERESA GOINS [facility]. Rec. #: [id number] /Age/Gender: 1965 (Age: 51) / F Account: [id number] Location: [address] [place] [address]/[facility] Taken: 08/13/2017 Received: 08/14/2017 Reported: 08/15/2017 Physicians: Samir Giordano MD Specimen(s) Received GALLBLADDER WITH STONES Clinical History Cholecystitis Final Diagnosis GALLBLADDER, LAPAROSCOPIC CHOLECYSTECTOMY: CHRONIC CHOLECYSTITIS WITH CHOLELITHIASIS. Electronically Signed Ciarra Tuttle M.D. Gross Description Received in formalin, labeled "gallbladder with stones," is a 5.7 x 2.8 x 2.8 cm. gallbladder with a 0.2 cm. in length portion of cystic duct attached. The outer surface is jason otto and varies from smooth to shaggy. The lumen contains green, tenacious bile is 2 jason, irregular choleliths averaging 2.0 cm in greatest dimension. The mucosa is green and focally eroded. The wall of the gallbladder averages 0.1 cm. in thickness. Clay Artisan sections are submitted in one cassette. 08/14/2017 [facility]08/14/2017
== END 2017-08-14 17:19 | disposition home or self-care (01) | DRG 263 ==
LOC: JER 16:35 → JERBED 08-09 00:33 → J5S 08-09 02:19
PROVIDERS: ADMIT Internal Medicine; ATTEND Internal Medicine
PROC: 0FT44ZZ Resection of Gallbladder, Percutaneous Endoscopic Approach (ICD-10-PCS; principal; 2017-08-13 13:00)
DX: K80.00 Calculus of gallbladder with acute cholecystitis without obstruction (principal); F41.0 Panic disorder [episodic paroxysmal anxiety]; R74.0 Nonspecific elevation of levels of transaminase and lactic acid dehydrogenase [LDH]; Z96.641 Presence of right artificial hip joint; D25.9 Leiomyoma of uterus, unspecified; R11.2 Nausea with vomiting, unspecified; K86.3 Pseudocyst of pancreas
CPT/HCPCS: 36415; 74020-TC; 74182-TC; 76705-TC; 80053; 81003; 81015; 83690; 83735; 84100; 84703; 85025; 85027; 85610; 85730; 86850; 86900; 86901; 87086; 88304-TC; 93005; 93010; 94760; 99284-25; A9576

== ENCOUNTER 2019-03-07 11:39 | Emergency (ER) | payer OTHER ==
[2019-03-07 11:54] VITALS: BMI 28.9
--- NOTE | 2019-03-07 12:13 | PDOC ---
History of Present Illness <Patricia Cabello - Last Filed: 03/07/19 16:12> - General History Source: Patient - History of Present Illness Initial Comments: 03/07/19 12:28 Ms. Suh is a 53 y/o Yi speaking woman with history of cholecystectomy in 2017, nephrolithiasis in 2018, and anxiety presenting with one day of nausea and diarrhea. She reports that last night she began to note some chills, mild nausea, and had a decreased appetite. This morning, she reports 3-4 episodes of boz-dattho-wso-bilious vomiting. She reports initially vomiting gastric contents , ending with what was described as yellow stomach acid. She denies any green, red, or other discoloration of the vomitus. She reports that the diarrhea was soft but non-liquid, no change in usual color - no dark, pale, or grossly bloody stools. She denies any sick contacts at home or at work. She reports that she did not eat anything different than usual, and she denies eating at any restaurants or any reheated or old food. She denies any pain in her abdomen , chest, and denies any shortness of breath or urinary complaints. Timing/Duration: 24 hours <Shahzad Francois - Last Filed: 03/09/19 12:57> - General Chief Complaint: Vomiting/Diarrhea Stated Complaint: VOMITTING / DIARRHEA Time Seen by Provider: 03/07/19 12:13 Past History <CabelloPatricianatalie Freedman - Last Filed: 03/07/19 16:12> - Past Medical History COPD: No Psychiatric Problems: Yes (panic attacks, anxiety) - Surgical History Cholecystectomy: Yes Orthopedic Surgery: Yes (R hip replacement) - Immunization History Immunization Up to Date: Yes - Suicide/Smoking/Psychosocial Hx Smoking Status: No Smoking History: Never smoked Have you smoked in the past 12 months: No Number of Cigarettes Smoked Daily: 0 Hx Alcohol Use: No Drug/Substance Use Hx: No Substance Use Type: None <Shahzad Francois - Last Filed: 03/09/19 12:57> - Past Medical History Allergies/Adverse Reactions: Allergies Allergy/AdvReac Type Severity Reaction Status Date / Time No Known Allergies Allergy Verified 03/07/19 11:54 Home Medications: Ambulatory Orders Buspirone HCl [Buspar -] 10 mg PO DAILY 04/21/17 Ondansetron [Zofran Odt -] 4 mg SL TID PRN #9 od.tablet 03/07/19 Review of Systems - Review of Systems Able to Perform ROS?: Yes Comments:: 03/07/19 13:02 ROS: GENERAL/CONSTITUTIONAL: (+) fever, chills. No weakness. HEAD, EYES, EARS, NOSE AND THROAT: No change in vision. No ear pain or discharge. No sore throat. CARDIOVASCULAR: No chest pain or shortness of breath RESPIRATORY: No cough, wheezing, or hemoptysis. GASTROINTESTINAL: (+) nausea, vomiting, diarrhea. No constipation. GENITOURINARY: No dysuria, frequency, or change in urination. MUSCULOSKELETAL: No joint or muscle swelling or pain. No neck or back pain. SKIN: No rash NEUROLOGIC: No headache, vertigo, loss of consciousness, or change in strength/ sensation. ENDOCRINE: No increased thirst. No abnormal weight change HEMATOLOGIC/LYMPHATIC: No anemia, easy bleeding, or history of blood clots. ALLERGIC/IMMUNOLOGIC: No hives or skin allergy. <Shahzad Francois - Last Filed: 03/09/19 12:57> *Physical Exam - Vital Signs Last Vital Signs Temp Pulse Resp BP Pulse Ox 99.3 F 82 20 122/51 L 98 03/07/19 15:55 03/07/19 15:55 03/07/19 15:55 03/07/19 15:55 03/07/19 15:55 <Patricia Cabello - Last Filed: 03/07/19 16:12> - Vital Signs Last Vital Signs Temp Pulse Resp BP Pulse Ox 100.6 F H 114 H 20 120/67 94 L 03/07/19 11:51 03/07/19 11:51 03/07/19 11:51 03/07/19 11:51 03/07/19 11:51 - Physical Exam Comments: 03/07/19 13:05 GENERAL: Fatigued appearing. Awake, alert, and fully oriented, in no acute distress HEAD: No signs of trauma, normocephalic, atraumatic EYES: PERRLA, EOMI, sclera anicteric, conjunctiva clear ENT: Auricles normal inspection, hearing grossly normal, nares patent, oropharynx clear without exudates. Moist mucosa NECK: Normal ROM, supple, no lymphadenopathy, JVD, or masses LUNGS: No distress, speaks full sentences, clear to auscultation bilaterally HEART: Tachycardic. Regular rhythm, normal S1 and S2, no murmurs, rubs or gallops, peripheral pulses normal and equal bilaterally. ABDOMEN: Soft, nontender, normoactive bowel sounds. No guarding, no rebound. No masses EXTREMITIES : Normal inspection, Normal range of motion, no edema. No clubbing or cyanosis. NEUROLOGICAL: Cranial nerves II through XII grossly intact. Normal speech, normal gait, no focal sensorimotor deficits SKIN: Warm, Dry, normal turgor, no rashes or lesions noted <Shahzad Francois - Last Filed: 03/09/19 12:57> ED Treatment Course - LABORATORY CBC & Chemistry Diagram: 03/07/19 13:00 03/07/19 13:00 - ADDITIONAL ORDERS Additional order review: Laboratory Results 03/07/19 03/07/19 03/07/19 14:14 13:00 13:00 Sodium 142 Potassium 4.5 Chloride 110 H Carbon Dioxide 27 Anion Gap 6 L BUN 16.1 Creatinine 0.8 Est GFR (CKD-EPI)AfAm 96.87 Est GFR (CKD-EPI)NonAf 83.58 Random Glucose 104 Calcium 9.2 Total Bilirubin 0.7 AST 37 ALT 45 Alkaline Phosphatase 87 Total Protein 7.7 Albumin 3.6 Lipase 72 L Urine Color Yellow Urine Appearance Clear Urine pH 6.5 Ur Specific [place] 1.027 Urine Protein Trace Urine Glucose (UA) Negative Urine Ketones 1+ H Urine Blood Negative Urine Nitrite Negative Urine Bilirubin Negative Urine Urobilinogen 0.2 Ur Leukocyte Esterase Negative 03/07/19 13:00 RBC 4.07 MCV 97.1 H MCHC 33.6 RDW 13.6 MPV 9.1 Neutrophils % 91.5 H D Lymphocytes % 5.3 L D Monocytes % 2.9 L Eosinophils % 0.0 D Basophils % 0.3 - Medications Given in the ED: ED Medications Discontinued Medications Generic Name Dose Route Start Last Admin Trade Name Freq PRN Reason Stop Dose Admin Acetaminophen 1,000 mg 03/07/19 12:37 03/07/19 13:15 Ofirmev Injection - IVPB 03/07/19 12:38 1,000 mg ONCE ONE Administration Sodium Chloride 1,000 ml 03/07/19 12:37 03/07/19 13:15 Normal Saline - IV 03/07/19 12:38 1,000 ml ONCE ONE Administration <Patricia Cabello - Last Filed: 03/07/19 16:12> - LABORATORY CBC & Chemistry Diagram: 03/07/19 13:00 03/07/19 13:00 <Shahzad Francois - Last Filed: 03/09/19 12:57> Medical Decision Making - Medical Decision Making 03/07/19 12:53 53 y/o F with hx cholecystectomy, prior nephrolithiasis, anxiety p/w one day of vomiting, diarrhea, fever without abdominal pain, normal abdominal exam consistent with infectious gastroenteritis. Plan for volume resuscitation given tachycardia and presumed volume depletion secondary to vomiting/diarrhea, basic labs to assess etiology, ekg to assess for arrhythmias given tachycardia. CT abdomen deferred at this time given lack of abdominal pain, recency of symptom onset. Likely discharge home pending labs and repeat exams. Plan: 1L NS bolus CBC w/diff CMP EKG UA Urine culture Lipase 1000mg acetaminophen for fever Dispo: Likely d/c home pending labs 03/07/19 14:01 White cell count elevated to 17.0 on CBC, plan for CT abdomen/pelvis w/IV contrast to evaluate for other abdominal pathology. ---- CT returned normal. Vitals remain sable, symptoms have resolved. Plan for discharge home with PCP follow up. <Shahzad Francois - Last Filed: 03/09/19 12:57> *DC/Admit/Observation/Transfer <Patricia Cabello - Last Filed: 03/07/19 16:12> - Discharge Dispostion Decision to Admit order: No <Shahzad Francois - Last Filed: 03/09/19 12:57> Diagnosis at time of Disposition: Vomiting and diarrhea - Discharge Dispostion Disposition: HOME - Prescriptions Prescriptions: Ondansetron [Zofran Odt -] 4 mg SL TID PRN #9 od.tablet PRN Reason: nausea and vomiting - Referrals Referrals: Sena Diego MD [Primary Care Provider] - - Patient Instructions Printed Discharge Instructions: Diarrhea, [place] Diet, DI for Vomiting -- Adult Additional Instructions: Usted fue evaluada en la leslie de urgencias por nausea, vomitos, y diarrhea. Hicimos examen fisico, tomamos bonifacio historia medica, y evaluamos gomez sintomas. Montiel escan abdominal regreso normal, y nosotros creemos que usted tiene bonifacio infeccion intestinal. Por favor regrese a la leslie de urgencias si usted empieza a tener fiebres altas, vomitos o diarrhea con deidra, o confusion. Esperamos que gomez sintomas se resuelvan en 1-2 berg. Ve a montiel doctor primario en las proximas dos semanas. tome zofran cada 8 horas segn sea necesario para las nuseas / vmitos Print Language: LITHUANIAN - Post Discharge Activity
[2019-03-07] MEDS ORDERED: SODIUM CHLORIDE 0.9% 500 ML INFUS.BAG IV ONE (12:37)
[2019-03-07] MEDS ORDERED: ACETAMINOPHEN 1000 MG/100 ML VIAL (NON FORMULARY) IVPB ONE (12:37)
--- NOTE | 2019-03-07 12:47 | PDOC ---
Documentation entered by Shantanu Lutz SCRIBE, acting as scribe for Patricia Cabello MD. Patricia Cabello MD: This documentation has been prepared by the Bolivar purcell Xhesika, SCRIBE, under my direction and personally reviewed by me in its entirety. I confirm that the documentation accurately reflects all work, treatment, procedures, and medical decision making performed by me. Attending Attestation - Resident Resident Name: AlessandroShahzad - ED Attending Attestation I have performed the following: I have examined & evaluated the patient, The case was reviewed & discussed with the resident, I agree w/resident's findings & plan - HPI HPI: 03/07/19 13:32 The patient is a 53 year old female with a significant past medical history of anxiety who presents to the ED with one day of nausea and soft diarrhea. Patient states she had 4 episodes of nbnb vomiting ending with yellow stomach acid. Patient states she endorsed chills, mild nausea, and decreased appetite last night. Patient denies any changes in diet or eating at restaurants. Patient denies any recent travels or sick contacts. Denies fever, chills, chest pain, SOB, palpitations, dizziness, weakness, abdominal pain, bladder and bowel problems, leg swelling Allergies: NKDA Surgical history: cholecystectomy ( 2017), nephrolithiasis (2018) Meds: as documented in EMR - Physicial Exam PE: 03/07/19 13:33 Agree with the resident's HPI and PE as documented in the electronic medical record. NAD, well appearing, EOMI, PERRL, MMM, nl conjunctiva, anicteric; neck supple. lungs clear, RRR, abdomen soft nontender. Back nontender. MIRANDA x4, no focal neuro deficits. No peripheral edema. normal color for ethnicity, WWP. - Medical Decision Making 03/07/19 12:45 See HPI for details. Prior notes reviewed, including admissions, discharges and consultations. Vital signs reviewed, +fever and tachycardia. appears dehydrated. DDX gastroenteritis, viral syndrome, food poisoning, colitis, C diff colitis, dehydration, electrolyte/metabolic derangements. laboratory results and imaging reviewed, basic labs and lytes wnl, notable for leukocytosis of 17K, with neutrophilic shift LFTs/lipase_normal UA_neg for infection/ketones EKG normal sinus rhythm, no interval abnormalities, narrow QRS, ST and T wave segments and morphology normal. Nonspecific T wave abnormalities ED course -interventions: tylenol, IVF. CT a/p to eval for abscess/infection/inflammation, colitis given sx and febrile illness. neg for acute pathology, no colitis or abscess or source of infection; nonobstructing nephrolithiasis. discussed results with pt. no indication for abx, as no recent abx use and C diff risk with treatment, as this is most likely viral. no e/o dehydration. nontoxic appearing. ok with treatment plan, bland diet, reassurance and supportive care. rx zofran prn for n/v, keep up with hydration and PO intake. rpt VS improved, no fever, normotensive, normal HR. Pt to be discharged in stable condition. Patient made aware of clinical impression, treatment recommendations and disposition plan, return precautions discussed (including but not limited to new or persistent/worsening symptoms, pain, fevers, or signs of infection, chest pain, respiratory distress, inability to tolerate oral intake, dehydration, syncope, or neurologic changes) . Follow up with PMD as recommended, follow up information provided, take medications as instructed for duration of time. continue with supportive care, avoid triggers and precipitants. All questions answered to patient's satisfaction and expressed understanding and comfort with this. At the time of discharge, the patient is alert, clinically improved, tolerating po and verbalizes understanding of instructions, satisfied with the care received and felt comfortable with the plan. Patient does not suffer from an acute life- threatening medical condition at this time and is safe for outpatient follow- up. 03/07/19 13:59 03/07/19 16:08 03/07/19 16:09 03/07/19 16:11
[2019-03-07] MEDS ORDERED: ACETAMINOPHEN INJECTION 100 ML IVPB ONE (13:02)
[2019-03-07 13:23] LABS: BASO % 0.3 % (0-2.0); HEMATOCRIT 39.5 % (32.4-45.2); HEMOGLOBIN 13.3 GM/dL (10.7-15.3); LYMPH % 5.3 % (8-40); MCH 32.6 pg (25.7-33.7); MCHC 33.6 g/dl (32.0-36.0); MEAN CELL VOLUME 97.1 fl (80-96); MEAN PLT VOLUME 9.1 fl (7.5-11.1); MONO % 2.9 % (3.8-10.2); NEUT % 91.5 % (42.8-82.8); PLATELET COUNT 268 K/MM3 (134-434); RBC 4.07 M/mm3 (3.60-5.2); RDW 13.6 % (11.6-15.6); WHITE BLOOD COUNT 17.4 K/mm3 (4.0-10.0)
[2019-03-07 13:59] LABS: ALBUMIN 3.6 g/dl (3.4-5.0); BILIRUBIN,TOTAL 0.7 mg/dL (0.2-1); BLOOD UREA NITROGEN 16.1 mg/dL (7-18); CALCIUM 9.2 mg/dL (8.5-10.1); CREATININE 0.8 mg/dL (0.55-1.3); POTASSIUM 4.5 mmol/L (3.5-5.1); TOT PROT 7.7 g/dl (6.4-8.2)
[2019-03-07 14:31] LABS: PH,URINE 6.5 (5.0-8.0); URINE APPEARANCE CLEAR; URINE BILIRUBIN NEGATIVE (NEGATIVE); URINE COLOR YELLOW; URINE GLUCOSE (UA) NEGATIVE (NEGATIVE); URINE KETONE 1+ (NEGATIVE); URINE LEUK ESTERASE NEGATIVE (NEGATIVE); URINE NITRITE NEGATIVE (NEGATIVE); URINE PROTEIN TRACE (NEGATIVE); URINE UROBILINOGEN 0.2 mg/dL (0.2-1.0)
[2019-03-07 15:51] LABS: ANISOCYTOSIS 0; MACROCYTOSIS 0; PLATELET ESTIMATE NORMAL
[2019-03-07 15:56] VITALS: BP 122/51; PULSE 82; TEMP 99.3
== END 2019-03-07 16:15 | disposition home or self-care (01) ==
LOC: JER 11:39
PROC: 3E033NZ Introduction of Analgesics, Hypnotics, Sedatives into Peripheral Vein, Percutaneous Approach (ICD-10-PCS; principal; 2019-03-07)
PROC: 3E0337Z Introduction of Electrolytic and Water Balance Substance into Peripheral Vein, Percutaneous Approach (ICD-10-PCS; 2019-03-07)
DX: R11.10 Vomiting, unspecified (principal); R19.7 Diarrhea, unspecified
CPT/HCPCS: 36415; 74177-TC; 80053; 81003; 83690; 85025; 87086; 96374; 99282-25; J0131

== ENCOUNTER 2019-09-08 12:10 | Emergency (ER) | payer OTHER ==
[2019-09-08 12:31] VITALS: BP 129/90; PULSE 76; TEMP 98.2; BMI 28.7
--- NOTE | 2019-09-08 15:10 | PDOC ---
History of Present Illness - General Chief Complaint: Cold Symptoms Stated Complaint: COUGH/ PINK EYE Time Seen by Provider: 09/08/19 14:07 - History of Present Illness Initial Comments: 09/08/19 15:06 CHIEF COMPLAINT: cough HISTORY OF PRESENT ILLNESS: 53 yo F with no significant PMH presents to ED with redness to R eye since yesterday and cough x "over a week." Patient denies any fever, chills, nausea, vomiting, diarrhea. No recent travel or sick contacts. PAST MEDICAL HISTORY: Denies past medical history FAMILY HISTORY: Denies SOCIAL HISTORY: Denies tobacco, alcohol, illicit drug use. SURGICAL HISTORY: Denies ALLERGIES: No known drug allergies REVIEW OF SYSTEMS General/Constitutional: Denies fever or chills. Denies weakness, weight change. HEENT: Redness to b/l eyes. Denies change in vision. Denies ear pain or discharge. Denies sore throat. Cardiovascular: Denies chest pain or shortness of breath. Respiratory:Cough. Denie swheezing, or hemoptysis. Gastrointestinal: Denies nausea, vomiting, diarrhea or constipation. Denies rectal bleeding. Genitourinary: Denies dysuria, frequency, or change in urination. Musculoskeletal: Denies joint or muscle swelling or pain. Denies neck or back pain. Skin and breasts: Denies rash or easy bruising. Neurologic: Denies headache, vertigo, loss of consciousness, or loss of sensation. Psychiatric: Denies depression or anxiety. PHYSICAL EXAM General Appearance: Well-appearing, appropriately dressed. No apparent distress. HEENT: Conjunctival injection to b/l eyes. EOMI, PERRLA, normal ENT inspection , normal voice, TMs normal, pharynx normal. No conjunctival pallor. No photophobia, scleral icterus. Neck: Supple. Trachea midline. No tenderness, rigidity, carotid bruit, stridor , lymphadenopathy, or thyromegaly. Respiratory/Chest: Lungs CTAB. No shortness of breath, chest tenderness, respiratory distress, accessory muscle use. No crackles, rales, rhonchi, stridor , wheezing, dullness Cardiovascular: RRR. S1, S2. No JVD, murmur, bradycardia, tachycardia. Vascular Pulses: Dorsalis-Pedis (R): 2+, Dorsalis-Pedis (L): 2+ Gastrointestinal/Abdominal: Normal bowel sounds. Abdomen soft, non-distended. No tenderness or rebound tenderness. No organomegaly, pulsatile mass, guarding , hernia, hepatomegaly, splenomegaly. Lymphatic: No adenopathy, tenderness. Musculoskeletal/Extremities: Normal inspection. FROM of all extremities, normal capillary refill. Pelvis Stable. No CVA tenderness. No tenderness to extremities, pedal edema, swelling, erythema or deformity. Integumentary: Appropriate color, dry, warm. No cyanosis, erythema, jaundice or rash Neurologic: security incident handler II-XII intact. Fully oriented, alert. Appropriate mood/affect. Motor strength 5/5. No appreciable EOM palsy, facial droop or sensory deficit. Past History - Past Medical History Allergies/Adverse Reactions: Allergies Allergy/AdvReac Type Severity Reaction Status Date / Time No Known Allergies Allergy Verified 09/08/19 12:31 Home Medications: Ambulatory Orders Buspirone HCl [Buspar -] 10 mg PO DAILY 04/21/17 Ondansetron [Zofran Odt -] 4 mg SL TID PRN #9 od.tablet 03/07/19 Benzonatate [Tessalon Perle -] 200 mg PO TID #42 cap 09/08/19 Naphazoline HCl/Pheniramine [Naphcon-A Eye Drops] 10 ml OU TID #1 bottle COPD: No Psychiatric Problems: Yes (panic attacks, anxiety) - Surgical History Cholecystectomy: Yes Orthopedic Surgery: Yes (R hip replacement) - Immunization History Immunization Up to Date: Yes - Psycho Social/Smoking Cessation Hx Smoking Status: No Smoking History: Never smoked Have you smoked in the past 12 months: No Number of Cigarettes Smoked Daily: 0 Information on smoking cessation initiated: No Hx Alcohol Use: No Drug/Substance Use Hx: No Substance Use Type: None *Physical Exam - Vital Signs Last Vital Signs Temp Pulse Resp BP Pulse Ox 98.2 F 76 16 129/90 100 09/08/19 12:29 09/08/19 12:29 09/08/19 12:29 09/08/19 12:29 09/08/19 12:29 Medical Decision Making - Medical Decision Making 09/08/19 15:08 53 yo F with no significant PMH presents to ED with redness to R eye since yesterday and cough x "over a week." Clinical presentation consistent with viral syndrome. Will treat symptomatically. Advised patient to take medications as prescribed and to f/u with PCP within the next week. Patient verbalized understanding and agrees to plan. Discharge - Discharge Information Problems reviewed: Yes Clinical Impression/Diagnosis: Viral syndrome Condition: Stable Disposition: HOME - Admission No - Additional Discharge Information Prescriptions: Benzonatate [Tessalon Perle -] 200 mg PO TID #42 cap Naphazoline HCl/Pheniramine [Naphcon-A Eye Drops] 10 ml OU TID #1 bottle - Follow up/Referral Referrals: Sena Diego MD [Primary Care Provider] - - Patient Discharge Instructions Patient Printed Discharge Instructions: DI for Viral Syndrome - Post Discharge Activity Work/Back to School Note: Back to Work
== END 2019-09-08 15:48 | disposition home or self-care (01) ==
LOC: JERFT 12:10 → JER 12:10
DX: B34.9 Viral infection, unspecified (principal); F41.9 Anxiety disorder, unspecified; M25.551 Pain in right hip
CPT/HCPCS: 99281-25

== ENCOUNTER 2022-05-17 10:55 | Emergency (ER) | payer OTHER ==
[2022-05-17 11:08] VITALS: BP 133/50; PULSE 77; RESP 16; TEMP 98.1; BMI 29.2
[2022-05-17 11:54] LABS: URINE APPEARANCE CLOUDY; URINE BILIRUBIN NEGATIVE (NEGATIVE); URINE COLOR YELLOW; URINE GLUCOSE (UA) NEGATIVE (NEGATIVE); URINE KETONE NEGATIVE (NEGATIVE); URINE LEUK ESTERASE NEGATIVE (NEGATIVE); URINE NITRITE NEGATIVE (NEGATIVE); URINE PROTEIN NEGATIVE (NEGATIVE); URINE UROBILINOGEN 0.2 mg/dL (0.2-1.0)
[2022-05-17 12:07] LABS: HCG,QUALITATIVE URINE Negative
== END 2022-05-17 12:22 | disposition home or self-care (01) ==
LOC: JER 10:55 → JERFT 10:55
DX: R30.0 Dysuria (principal)
CPT/HCPCS: 81003; 84703; 87086; 99283-25

== ENCOUNTER 2022-05-25 19:16 | Emergency (ER) | payer OTHER ==
[2022-05-25 19:54] VITALS: BP 138/83; PULSE 78; RESP 19; TEMP 98.3; BMI 29.2
[2022-05-25] MEDS ORDERED: diphenhydrAMINE HCL 50 MG CAPSULE PO ONE (20:12)
[2022-05-25] MEDS ORDERED: predniSONE 20 MG TABLET (UD) PO ONE (20:13)
[2022-05-25] MEDS ORDERED: FAMOTIDINE 10 MG TABLET PO ONE (20:13)
[2022-05-25] MEDS ORDERED: predniSONE 20 MG TABLET (UD) ONE (20:26)
[2022-05-25] MEDS ORDERED: diphenhydrAMINE HCL 25 MG CAPSULE (FP) PO ONE (20:26)
[2022-05-25] MEDS ORDERED: FAMOTIDINE 10 MG TABLET ONE (20:26)
== END 2022-05-25 23:31 | disposition home or self-care (01) ==
LOC: JERFT 19:16 → JER 19:16 → JERFT 23:31
DX: L50.0 Allergic urticaria (principal)
CPT/HCPCS: 99283-25

== ENCOUNTER 2022-05-31 10:28 | Emergency (ER) | payer OTHER ==
[2022-05-31 10:54] VITALS: BP 134/72; PULSE 66; RESP 16; TEMP 97.8; BMI 29.2
[2022-05-31 12:43] LABS: URINE APPEARANCE CLEAR; URINE BILIRUBIN NEGATIVE (NEGATIVE); URINE COLOR YELLOW; URINE GLUCOSE (UA) NEGATIVE (NEGATIVE); URINE KETONE NEGATIVE (NEGATIVE); URINE LEUK ESTERASE NEGATIVE (NEGATIVE); URINE NITRITE NEGATIVE (NEGATIVE); URINE PROTEIN NEGATIVE (NEGATIVE); URINE UROBILINOGEN 0.2 mg/dL (0.2-1.0)
== END 2022-05-31 13:29 | disposition home or self-care (01) ==
LOC: JER 10:28 → JERFT 10:28
DX: R30.0 Dysuria (principal)
CPT/HCPCS: 36415; 81003; 87086; 87491; 87591; 99283-25

== ENCOUNTER 2022-06-07 10:16 | Emergency (ER) | payer OTHER ==
[2022-06-07 10:26] VITALS: BP 121/74; PULSE 103; RESP 18; TEMP 98.3; BMI 29.2
[2022-06-07 12:53] LABS: PH,URINE 6.5 (5.0-8.0); URINE APPEARANCE CLEAR; URINE BILIRUBIN NEGATIVE (NEGATIVE); URINE COLOR YELLOW; URINE GLUCOSE (UA) NEGATIVE (NEGATIVE); URINE KETONE NEGATIVE (NEGATIVE); URINE LEUK ESTERASE NEGATIVE (NEGATIVE); URINE NITRITE NEGATIVE (NEGATIVE); URINE PROTEIN NEGATIVE (NEGATIVE); URINE UROBILINOGEN 0.2 mg/dL (0.2-1.0)
[2022-06-07 12:54] LABS: BASO % 0.8 % (0-2.0); EOS % 7.5 % (0-4.5); HEMATOCRIT 38.9 % (32.4-45.2); HEMOGLOBIN 12.8 GM/dL (10.7-15.3); LYMPH % 17.4 % (8-40); MCH 32.2 pg (25.7-33.7); MEAN CELL VOLUME 97.8 fl (80-96); MEAN PLT VOLUME 8.4 fl (7.5-11.1); MONO % 6.6 % (3.8-10.2); NEUT % 67.7 % (42.8-82.8); PLATELET COUNT 332 10^3/uL (134-434); RBC 3.98 M/mm3 (3.60-5.2); RDW 13.1 % (11.6-15.6)
[2022-06-07 12:59] LABS: EPI CELLS 24 /uL (0-25.1); HYALINE CASTS 0 /uL (0-3.1); URINE BACTERIA 887 /uL (0-1359); URINE RBC 7 /uL (0-23.9); URINE WBC 24 /uL (0-25.8)
[2022-06-07 13:25] LABS: CALCIUM 9.1 mg/dL (8.5-10.1)
[2022-06-07 13:27] LABS: CREATININE 0.6 mg/dL (0.55-1.3)
[2022-06-07 13:29] LABS: BILIRUBIN,TOTAL 0.2 mg/dL (0.2-1); TOT PROT 6.4 g/dl (6.4-8.2)
== END 2022-06-07 14:49 | disposition home or self-care (01) ==
LOC: JERFT 10:16 → JER 10:16
DX: R10.9 Unspecified abdominal pain (principal)
CPT/HCPCS: 36415; 80053; 81003; 85025; 87086; 99283-25

== ENCOUNTER → 2022-06-13 | Day surgery (SDC) | payer OTHER | END | disposition home or self-care (01) | LOC: FMAMMOTONE 08:32 | PROVIDERS: ATTEND Family Medicine | PROC: 0HBT3ZX Excision of Right Breast, Percutaneous Approach, Diagnostic (ICD-10-PCS; principal; 2022-06-13) | DX: N60.81 Other benign mammary dysplasias of right breast (principal); N60.91 Unspecified benign mammary dysplasia of right breast; N64.89 Other specified disorders of breast; R92.0 Mammographic microcalcification found on diagnostic imaging of breast | CPT/HCPCS: 19081; 76098-TC-FY; 87899; 88305-TC; A4648 ==

== ENCOUNTER → 2022-07-15 | Day surgery (SDC) | payer OTHER | END | disposition home or self-care (01) | LOC: JMAMMOTONE 11:23 | PROVIDERS: ATTEND Surgery Surgical Oncology | PROC: BH40ZZZ Ultrasonography of Right Breast (ICD-10-PCS; principal; 2022-07-15) | DX: N60.91 Unspecified benign mammary dysplasia of right breast (principal) | CPT/HCPCS: 19281; A4648; C9803-CS; U0003; U0005 ==

== ENCOUNTER 2022-07-17 04:05 | Day surgery (SDC) | payer OTHER ==
[2022-07-16 12:43] VITALS: BMI 29.2
[2022-07-17] MEDS ORDERED: PROPOFOL 20 ML ONE (09:30)
[2022-07-17] MEDS ORDERED: MIDAZOLAM HCL 2 MG/2 ML SINGLE DOSE VIAL ONE (09:30)
[2022-07-17] MEDS ORDERED: FENTANYL CITRATE/PF 50 MCG/ML VIAL ONE (09:30)
[2022-07-17] MEDS ORDERED: ONDANSETRON 4 MG/2 ML VIAL ONE (09:36)
[2022-07-17] MEDS ORDERED: BUPIVACAINE HCL/PF 0.5% (5MG/ML) 10 ML VIAL ONE (09:53)
[2022-07-17] MEDS ORDERED: BUPIVACAINE HCL/PF 0.5% (5MG/ML) 10 ML VIAL NR ONE (10:00)
[2022-07-17] MEDS ORDERED: LIDOCAINE 2%/EPINEPHRINE 1:100000 (50 ML MD VIAL) INF ONE (10:00)
[2022-07-17] MEDS ORDERED: KETOROLAC TROMETHAMINE 30 MG/1 ML VIAL ONE (10:09)
[2022-07-17] MEDS ORDERED: PROMETHAZINE HCL 25 MG/1 ML VIAL IVPUSH PRN (10:23)
[2022-07-17] MEDS ORDERED: ONDANSETRON 4 MG/2 ML VIAL IVPUSH PRN (10:23)
[2022-07-17] MEDS ORDERED: oxyCODONE HCL 5 MG TABLET PO PRN (10:23)
[2022-07-17] MEDS ORDERED: ACETAMINOPHEN 1000 MG/100 ML BAG IVPB PRN (10:24)
[2022-07-17 12:34] VITALS: TEMP 98.8
[2022-07-17 15:50] VITALS: BP 124/66; PULSE 60; RESP 16
== END 2022-07-17 14:00 | disposition home or self-care (01) ==
LOC: JASU-SURG 04:05
PROVIDERS: ATTEND Surgery Surgical Oncology
PROC: 0HBT0ZX Excision of Right Breast, Open Approach, Diagnostic (ICD-10-PCS; principal; 2022-07-17 09:00)
DX: N60.91 Unspecified benign mammary dysplasia of right breast (principal)
CPT/HCPCS: 76098-TC-FY; 88307-TC; 94760

== ENCOUNTER 2023-08-01 19:19 | Inpatient (IN) | payer OTHER ==
[2023-08-01] MEDS ORDERED: ACETAMINOPHEN 1000 MG/100 ML BAG IVPB ONE (20:59)
[2023-08-01] MEDS ORDERED: CEFTRIAXONE 500 MG in DEXTROSE 5%-WATER - 50 ML IVPB ONE (20:59)
[2023-08-01] MEDS ORDERED: AZITHROMYCIN IVPB 500 MG in DEXTROSE 5%-WATER - 250 ML IVPB ONE (20:59)
[2023-08-01] MEDS ORDERED: AZITHROMYCIN 500 MG VIAL IVPB ONE (21:06)
[2023-08-01] MEDS ORDERED: ACETAMINOPHEN INJECTION 100 ML IVPB ONE ×2 (21:06→22:36)
[2023-08-01 21:39] LABS: HEMATOCRIT 39.9 % (32.4-45.2); HEMOGLOBIN 13.4 G/dL (10.7-15.3); MCH 32.8 pg (25.7-33.7); MCHC 33.5 g/dl (32.0-36.0); MEAN CELL VOLUME 97.9 fl (80-96); MEAN PLT VOLUME 8.7 fl (7.5-11.1); PLATELET COUNT 212.9 10^3/uL (134-434); RBC 4.08 10^6/uL (3.60-5.2); RDW 13.2 % (11.6-15.6); WHITE BLOOD COUNT 5.7 10^3/uL (4.0-10.8)
[2023-08-01] MEDS ORDERED: DEXTROSE 5%-NORMAL SALINE 1,000 ML IV ONE (21:59)
[2023-08-01] MEDS ORDERED: ONDANSETRON *ODT* 4 MG TABLET SL ONE (22:00)
[2023-08-01 22:03] LABS: ALBUMIN 4.2 g/dl (3.4-5.0); BILIRUBIN,TOTAL 0.3 mg/dl (0.2-1); CALCIUM 9.9 mg/dl (8.5-10.1); CREATININE 0.7 mg/dl (0.6-1.3); POTASSIUM 4.6 mmol/L (3.5-5.1); TOT PROT 7.4 g/dl (6.4-8.2)
[2023-08-01] MEDS ORDERED: ONDANSETRON *ODT* 4 MG TABLET ONE (22:04)
[2023-08-01 22:10] LABS: PLATELET ESTIMATE ADEQUATE
[2023-08-01] MEDS ORDERED: KETOROLAC TROMETHAMINE 30 MG/1 ML VIAL IVPUSH ONE (22:31)
[2023-08-01] MEDS ORDERED: KETOROLAC TROMETHAMINE 30 MG/1 ML VIAL ONE (22:44)
[2023-08-02] MEDS ORDERED: OSELTAMIVIR PHOSPHATE 75 MG CAPSULE PO ONE (01:02)
[2023-08-02] MEDS ORDERED: SODIUM CHLORIDE 500 ML IV STA (02:40)
[2023-08-02 06:48] VITALS: BMI 25.0
[2023-08-02 08:45] LABS: HEMOGLOBIN 12.4 G/dL (10.7-15.3); MCH 32.2 pg (25.7-33.7); MCHC 32.7 g/dl (32.0-36.0); MEAN CELL VOLUME 98.7 fl (80-96); MEAN PLT VOLUME 8.6 fl (7.5-11.1); PLATELET COUNT 220.6 10^3/uL (134-434); RBC 3.85 10^6/uL (3.60-5.2); RDW 13.5 % (11.6-15.6); WHITE BLOOD COUNT 4.3 10^3/uL (4.0-10.8)
[2023-08-02] MEDS: CEFTRIAXONE 1 GM in DEXTROSE 5%-WATER - 50 ML IVPB SCH (10:02)
[2023-08-02 10:03] LABS: CALCIUM 9.1 mg/dl (8.5-10.1); CREATININE 0.7 mg/dl (0.6-1.3); POTASSIUM 4.5 mmol/L (3.5-5.1)
[2023-08-02] MEDS: AZITHROMYCIN IVPB 500 MG in DEXTROSE 5%-WATER - 250 ML IVPB SCH (10:03)
[2023-08-02 10:51] LABS: PLATELET ESTIMATE ADEQUATE
[2023-08-02] MEDS: OSELTAMIVIR PHOSPHATE 75 MG CAPSULE PO SCH ×2 (12:22→21:25)
[2023-08-02] MEDS ORDERED: ALBUTEROL SO4 0.083% IH SOL 2.5 MG/3 ML VIAL.NEB. NEB PRN (13:32)
[2023-08-02] MEDS: ACETAMINOPHEN 325 MG TABLET (FP) PO PRN (14:46)
[2023-08-03] MEDS: ACETAMINOPHEN 325 MG TABLET (FP) PO PRN (04:16)
[2023-08-03 09:08] VITALS: BP 115/68; PULSE 77; RESP 18; TEMP 98.3
[2023-08-03] MEDS: AZITHROMYCIN IVPB 500 MG in DEXTROSE 5%-WATER - 250 ML IVPB SCH (10:10)
[2023-08-03] MEDS: OSELTAMIVIR PHOSPHATE 75 MG CAPSULE PO SCH (10:10)
[2023-08-03] MEDS: CEFTRIAXONE 1 GM in DEXTROSE 5%-WATER - 50 ML IVPB SCH (10:11)
== END 2023-08-03 14:08 | disposition home or self-care (01) | DRG 139 ==
LOC: FER 19:19 → FM/S 08-02 00:53
PROVIDERS: ADMIT Internal Medicine; ATTEND Family Medicine
DX: J11.00 Influenza due to unidentified influenza virus with unspecified type of pneumonia (principal); J00 Acute nasopharyngitis [common cold]
CPT/HCPCS: 0241U-QW; 36415; 71046-TC-FY; 80048; 80053; 85027; 87040; 87070; 87205; 87899; 93005; 99285-25; Q0162

== ENCOUNTER 2023-12-08 10:36 | Emergency (ER) | payer OTHER ==
[2023-12-08 11:16] VITALS: BP 110/69; PULSE 75; RESP 17; TEMP 97.9; BMI 25.6
== END 2023-12-08 12:01 | disposition home or self-care (01) ==
LOC: JERFT 10:36 → JER 10:36 → JERFT 12:01
DX: L29.2 Pruritus vulvae (principal); L73.9 Follicular disorder, unspecified
CPT/HCPCS: 99283-25

== ENCOUNTER 2024-06-30 16:33 | Emergency (ER) | payer OTHER ==
[2024-06-30 16:39] VITALS: RESP 18; BMI 25.4
[2024-06-30] MEDS ORDERED: IBUPROFEN 600 MG TABLET (FP) PO ONE (17:46)
[2024-06-30] MEDS: IBUPROFEN 600 MG TABLET (FP) PO ONE (17:50)
[2024-06-30 18:39] VITALS: BP 109/66; PULSE 100; TEMP 99.3
== END 2024-06-30 18:43 | disposition home or self-care (01) ==
LOC: JERFT 16:33
DX: M79.10 Myalgia, unspecified site (principal); R53.1 Weakness; R11.10 Vomiting, unspecified; B34.9 Viral infection, unspecified; Z20.822 Contact with and (suspected) exposure to COVID-19
CPT/HCPCS: 0241U-QW; 87651; 99283-25

== ENCOUNTER → 2025-01-27 | Day surgery (SDC) | payer OTHER | END | disposition home or self-care (01) | LOC: FMAMMOTONE 09:38 | PROVIDERS: ATTEND Registered Nurse | PROC: 0HBT3ZX Excision of Right Breast, Percutaneous Approach, Diagnostic (ICD-10-PCS; principal; 2025-01-27) | DX: N64.1 Fat necrosis of breast (principal); N64.89 Other specified disorders of breast; R92.1 Mammographic calcification found on diagnostic imaging of breast | CPT/HCPCS: 19081; 76098-TC-FY; 87899; 88305-TC; 88342-TC; A4648 ==